=== PATIENT | female | born 1960 | race Caucasian/White ===

== ENCOUNTER → 2016-11-18 | Outpatient (REF) | payer OTHER, BC ==
[2016-11-18 12:23] LABS: ALBUMIN 3.9 GM/DL (3.2-5.2); ALBUMIN/GLOBULIN RATIO 1.22 (1.00-1.93); ALKALINE PHOSPHATASE 138 U/L (45-117); ALT/SGPT 57 U/L (12-78); ANION GAP 10 MEQ/L (8-16); AST/SGOT 43 U/L (15-37); BILIRUBIN,TOTAL 0.4 MG/DL (0.2-1.0); BLOOD UREA NITROGEN 13 MG/DL (7-18); CALCIUM LEVEL 9.1 MG/DL (8.5-10.1); CARBON DIOXIDE LEVEL 30 MEQ/L (21-32); CHLORIDE LEVEL 102 MEQ/L (98-107); CHOLESTEROL LEVEL 243 MG/DL (<200); CREATININE FOR GFR 0.87 MG/DL (0.55-1.02); GLOMERULAR FILTRATION RATE > 60.0 (>51); GLUCOSE, FASTING 97 MG/DL (70-105); POTASSIUM SERUM 4.1 MEQ/L (3.5-5.1); SODIUM LEVEL 142 MEQ/L (136-145); TOTAL PROTEIN 7.1 GM/DL (6.4-8.2); TRIGLYCERIDES LEVEL 94 MG/DL (<150)
== END ==
LOC: M LABDRAW1 11:29
PROVIDERS: ATTEND Nurse Practitioner Family
DX: E78.2 Mixed hyperlipidemia (principal)

== ENCOUNTER 2017-03-04 21:00 | Emergency (ER) | payer BC, OTHER ==
[~2017-03-04] VITALS: Ht 157.5 cm; Wt 72.6 kg
[2017-03-04] MEDS ORDERED: VITA500046 PO (21:19)
[2017-03-04] MEDS ORDERED: ALBU17IN2 INH (21:19)
[2017-03-04] MEDS ORDERED: PREV30CA11 PO (21:19)
[2017-03-04] MEDS ORDERED: DUO INH (21:19)
[2017-03-04] MEDS ORDERED: CHLO125TA PO (21:19)
[2017-03-04] MEDS ORDERED: SING10TA32 PO (21:19)
[2017-03-04] MEDS ORDERED: LISI-538 PO (21:19)
[2017-03-04] MEDS ORDERED: ZYRT10CA PO (21:19)
[2017-03-04] MEDS ORDERED: methylPREDNISolone INJ 125 MG/2 ML VIAL (J2930) IV ONE (23:15)
[2017-03-04] MEDS ORDERED: IPRATROPIUM 0.5MG/ALBUTEROL 2.5MG INH SOL UD 3ML (DUONEB)(J7620) NEB ONE (23:15)
[2017-03-04 23:39] LABS: BASO % 0.4 % (0.0-1.0); EOS # 0.2 K/mm3 (0.0-0.50); EOS % 3.2 % (0.0-3.0); LARGE UNSTAINED CELL # 0.1 K/mm3 (0.0-0.4); LARGE UNSTAINED CELL % 0.9 % (0.0-4.0); LYMPH # 1.5 K/mm3 (1.5-4.5); LYMPH % 20.6 % (24.0-44.0); MEAN CORPUSCULAR HEMOGLOBIN 28.6 pg (27.0-33.0); MEAN CORPUSCULAR VOLUME 84.1 fl (80.0-96.0); MONO # 0.5 K/mm3 (0.0-0.8); MONO % 6.7 % (0.0-5.0); NEUTROPHILS # 4.7 K/mm3 (1.8-7.7); NEUTROPHILS % 68.2 % (36.0-66.0); PLATELET COUNT, AUTOMATED 208 k/mm3 (150-450); RED CELL DISTRIBUTION WIDTH 13.5 % (11.5-14.5); WHITE BLOOD COUNT 6.9 K/mm3 (4.0-10.0)
[2017-03-05] MEDS ORDERED: PRED20TA PO (00:08)
[2017-03-05] MEDS ORDERED: ZITHTAB PO (00:08)
[2017-03-05] MEDS ORDERED: AZITHROMYCIN 250 MG TAB PO ONE (00:15)
[2017-03-05 00:34] LABS: ANION GAP 7 MEQ/L (8-16); BLOOD UREA NITROGEN 14 MG/DL (7-18); CALCIUM LEVEL 8.7 MG/DL (8.5-10.1); CARBON DIOXIDE LEVEL 30 MEQ/L (21-32); CHLORIDE LEVEL 105 MEQ/L (98-107); CREATININE FOR GFR 1.09 MG/DL (0.55-1.02); GLOMERULAR FILTRATION RATE 55.3 (>51); GLUCOSE, FASTING 115 MG/DL (70-105); POTASSIUM SERUM 3.3 MEQ/L (3.5-5.1); SODIUM LEVEL 142 MEQ/L (136-145)
[2017-03-05 00:45] VITALS: BP 115/66
== END 2017-03-05 00:48 | disposition home or self-care (01) ==
LOC: M ED 23:15
DX: J20.9 Acute bronchitis, unspecified (principal); J45.901 Unspecified asthma with (acute) exacerbation; I10 Essential (primary) hypertension; K21.9 Gastro-esophageal reflux disease without esophagitis; Z87.891 Personal history of nicotine dependence; Z79.51 Long term (current) use of inhaled steroids; Z79.899 Other long term (current) drug therapy; Z90.79 Acquired absence of other genital organ(s)
CPT/HCPCS: 36415; 71010; 80048; 82550; 82553; 83880; 85025; 85379; 93005; 93041; 94640; 94760; 96374; 99284; J2930

== ENCOUNTER → 2017-09-27 | Outpatient (REF) | payer BC ==
[2017-09-27 12:07] LABS: ALBUMIN/GLOBULIN RATIO 1.48 (1.00-1.93); ALKALINE PHOSPHATASE 134 U/L (45-117); ALT/SGPT 64 U/L (12-78); ANION GAP 7 MEQ/L (8-16); AST/SGOT 43 U/L (7-37); BILIRUBIN,TOTAL 0.3 MG/DL (0.2-1.0); BLOOD UREA NITROGEN 21 MG/DL (7-18); CALCIUM LEVEL 8.9 MG/DL (8.5-10.1); CARBON DIOXIDE LEVEL 30 MEQ/L (21-32); CHLORIDE LEVEL 105 MEQ/L (98-107); CREATININE FOR GFR 0.97 MG/DL (0.55-1.02); GLOMERULAR FILTRATION RATE > 60.0 (>51); GLUCOSE, FASTING 103 MG/DL (70-105); POTASSIUM SERUM 3.8 MEQ/L (3.5-5.1); SODIUM LEVEL 142 MEQ/L (136-145); TOTAL PROTEIN 6.7 GM/DL (6.4-8.2)
== END ==
LOC: M LABDRAW1 10:42
DX: I10 Essential (primary) hypertension (principal)
CPT/HCPCS: 80053

== ENCOUNTER → 2017-10-10 | Outpatient (REF) | payer BC ==
[2017-10-10 16:41] LABS: FREE T4 1.04 NG/DL (0.76-1.46)
== END ==
LOC: M SFHCPLAZ 09:53
DX: F32.89 Other specified depressive episodes (principal)
CPT/HCPCS: 84443

== ENCOUNTER → 2018-02-27 | Outpatient (REF) | payer BC ==
[2018-02-27 11:16] LABS: ALBUMIN 3.8 GM/DL (3.2-5.2); ALBUMIN/GLOBULIN RATIO 1.31 (1.00-1.93); ALKALINE PHOSPHATASE 109 U/L (45-117); ALT/SGPT 40 U/L (12-78); ANION GAP 7 MEQ/L (8-16); AST/SGOT 25 U/L (7-37); BILIRUBIN,TOTAL 0.3 MG/DL (0.2-1.0); BLOOD UREA NITROGEN 15 MG/DL (7-18); CALCIUM LEVEL 9.5 MG/DL (8.5-10.1); CARBON DIOXIDE LEVEL 30 MEQ/L (21-32); CHLORIDE LEVEL 104 MEQ/L (98-107); GLOMERULAR FILTRATION RATE > 60.0 (>51); GLUCOSE, FASTING 91 MG/DL (70-100); POTASSIUM SERUM 3.7 MEQ/L (3.5-5.1); SODIUM LEVEL 141 MEQ/L (136-145); TOTAL PROTEIN 6.7 GM/DL (6.4-8.2)
== END ==
LOC: M SFHCPLAZ 10:30
DX: I10 Essential (primary) hypertension (principal); E55.9 Vitamin D deficiency, unspecified
CPT/HCPCS: 80053

== ENCOUNTER → 2018-10-22 | Outpatient (REF) | payer BC ==
[~2018-10-22] MED LIST: ALBU17IN2 INH; CHLO125TA PO; DUO INH; LISI-538 PO; PRED20TA PO; PREV1CAP PO; SING10TA32 PO; VITA500046 PO; ZITHTAB PO; ZYRT10CA PO
[2018-10-22 13:06] LABS: ALBUMIN 3.7 GM/DL (3.2-5.2); BILIRUBIN,TOTAL 0.3 MG/DL (0.2-1.0); CALCIUM LEVEL 8.8 MG/DL (8.5-10.1); CHOLESTEROL RISK RATIO 4.393 (<5); CREATININE FOR GFR 1.02 MG/DL (0.55-1.30); GLOMERULAR FILTRATION RATE 59.5 (>51); POTASSIUM SERUM 3.9 MEQ/L (3.5-5.1); TOTAL 25(OH) VITAMIN D 95.7 NG/ML (30.0-100.0); TOTAL PROTEIN 6.6 GM/DL (6.4-8.2)
== END ==
LOC: M LABDRAW1 11:49
PROVIDERS: ATTEND Nurse Practitioner Family
DX: I10 Essential (primary) hypertension (principal); E78.2 Mixed hyperlipidemia; E55.9 Vitamin D deficiency, unspecified

== ENCOUNTER → 2019-04-18 | Outpatient (REF) | payer BC ==
[2019-04-18 13:35] LABS: ALBUMIN 3.8 GM/DL (3.2-5.2); BILIRUBIN,TOTAL 0.3 MG/DL (0.2-1.0); CALCIUM LEVEL 9.4 MG/DL (8.5-10.1); CHOLESTEROL RISK RATIO 4.714 (<5); CREATININE FOR GFR 1.12 MG/DL (0.55-1.30); GLOMERULAR FILTRATION RATE 53.2 (>51); POTASSIUM SERUM 3.6 MEQ/L (3.5-5.1)
== END ==
LOC: M LABDRAW1 07:29
PROVIDERS: ATTEND Nurse Practitioner Family
DX: E78.2 Mixed hyperlipidemia (principal)

== ENCOUNTER → 2019-04-26 | Outpatient (CLI) | payer BC ==
--- NOTE | 2019-04-26 16:11 | REP ---
Clinical: Pain. Technique: Neutral and frog lateral views of the right hip. Findings: No acute fracture dislocation. Skeletal structures, joint spaces, and surrounding soft tissues are essentially age-appropriate. Impression: Age-appropriate right hip radiographs. Electronically Signed by Kin Robledo MD 04/26/2019 04:03 P
== END ==
LOC: M LRY 15:47
PROVIDERS: ATTEND Physician Assistant
DX: M25.551 Pain in right hip (principal)

== ENCOUNTER → 2019-04-29 | Outpatient (CLI) | payer BC ==
--- NOTE | 2019-04-29 12:48 | REPMRS ---
Patient History The patient states she had a clinical breast exam in 03/2019. No known family history of cancer. No Hormone Replacement Therapy 3D TOMOSYNTHESIS WAS PERFORMED. [facility] for [facility]%. Digital Woman Screen Mammo: April 29, 2019 - Exam #: [id number] Bilateral CC and MLO view(s) were taken. Technologist: Laney Chandler, Technologist Prior study comparison: May 16, 2014, digital woman screen mammo performed at [facility]. May 25, 2010, bilateral bilat screen digital mammo performed at [facility]. FINDINGS: The breast tissue is heterogeneously dense. This may lower the sensitivity of mammography. There has been no change in the appearance of the mammogram from the prior studies. There is a moderate amount of residual fibroglandular tissue which is fairly symmetric. There is no interval development of dominant mass, areas of architectural distortion, or clustered microcalcification typical of malignancy. Assessment: BI-RADS/ACR category 1 mammogram. Negative Mammogram. Recommendation Routine screening mammogram in 1 year (for women over age 40). This mammogram was interpreted with the aid of an FDA-approved computer-aided dectection system. Electronically Signed By: Jose David Morrell MD 04/29/19 [id number]
== END ==
LOC: M WHC 10:12
PROVIDERS: ATTEND Nurse Practitioner Family
DX: Z12.31 Encounter for screening mammogram for malignant neoplasm of breast (principal)

== ENCOUNTER 2019-06-24 14:54 | Emergency (ER) | payer BC ==
[~2019-06-24] VITALS: Ht 157.5 cm; Wt 80.2 kg
[2019-06-24 14:54] VITALS: BP 131/79
[~2019-06-24 14:54] MED LIST changes: -ATIV1TAB7 PO; -AZEL1SPR3 NARES; -BEPR1.5D2 OP; -BREO1INH INH; -BUPR300T34 PO; -HYDR-3363 PO; -IPRA0.00 NEB; -REPLGEL VG; -SPIR1CAP INH; -VENTAER INH
--- NOTE | 2019-06-24 15:27 | REP ---
Portable chest x-ray: Single view. History: Chest pain. Comparison chest x-ray: June 24, 2019. Findings: EKG monitoring electrodes overlie the chest. The heart is not enlarged. The aorta is somewhat tortuous. Pleural angles are sharp. Pulmonary vasculature is not increased. Impression: No active disease. Electronically Signed by Juancarlos Allison MD 06/24/2019 03:18 P
[2019-06-24] MEDS ORDERED: VENTAER INH (15:36)
[2019-06-24] MEDS ORDERED: SPIR1CAP INH (15:36)
[2019-06-24] MEDS ORDERED: IPRA0.00 NEB (15:36)
[2019-06-24] MEDS ORDERED: REPLGEL VG (15:36)
[2019-06-24] MEDS ORDERED: ATIV1TAB7 PO (15:36)
[2019-06-24] MEDS ORDERED: BEPR1.5D2 OP (15:36)
[2019-06-24] MEDS ORDERED: AZEL1SPR3 NARES (15:36)
[2019-06-24] MEDS ORDERED: BUPR300T92 PO (15:36)
[2019-06-24] MEDS ORDERED: HYDR-3363 PO (15:36)
[2019-06-24] MEDS ORDERED: BREO1INH INH (15:36)
[2019-06-24 15:51] LABS: BASO % 0.5 % (0.0-1.0); EOS # 0.1 10^3/uL (0.0-0.5); EOS % 1.4 % (0.0-3.0); HEMOGLOBIN 13.3 g/dl (12.0-15.5); LYMPH # 1.5 10^3/uL (1.5-5.0); LYMPH % 25.7 % (24.0-44.0); MEAN CORPUSCULAR HEMOGLOBIN 28.1 pg (27.0-33.0); MEAN CORPUSCULAR HGB CONC 33.3 g/dl (32.0-36.5); MEAN CORPUSCULAR VOLUME 84.4 fl (80.0-96.0); MONO # 0.3 10^3/uL (0.0-0.8); MONO % 5.4 % (0.0-5.0); NEUTROPHILS # 3.9 10^3/uL (1.5-8.5); NEUTROPHILS % 66.5 % (36.0-66.0); PLATELET COUNT, AUTOMATED 253 10^3/uL (150-450); RED BLOOD COUNT 4.74 10^6/uL (4.00-5.40); WHITE BLOOD COUNT 5.9 10^3/uL (4.0-10.0)
[2019-06-24 16:35] LABS: BLOOD UREA NITROGEN 13 MG/DL (7-18); CALCIUM LEVEL 9.4 MG/DL (8.5-10.1); CARBON DIOXIDE LEVEL 25 MEQ/L (21-32); CHLORIDE LEVEL 107 MEQ/L (98-107); CK-MB VALUE MASS 2.7 NG/ML (<3.6); CPK CREATINE PHOSPHOKINASE 320 U/L (26-192); GLOMERULAR FILTRATION RATE 54.3 (>51); GLUCOSE, FASTING 113 MG/DL (70-100); MB/CK RELATIVE INDEX 0.84 (< OR =4); POTASSIUM SERUM 3.5 MEQ/L (3.5-5.1); SODIUM LEVEL 141 MEQ/L (136-145); TROPONIN I < 0.02 NG/ML (< 0.10)
[2019-06-24] MEDS ORDERED: IPRATROPIUM 0.5MG/ALBUTEROL 2.5MG INH SOL UD 3ML (DUONEB)(J7620) NEB ONE (17:00)
[2019-06-24] MEDS ORDERED: PRED20TA PO (17:25)
--- NOTE | 2019-06-24 21:01 | ECGEPIP ---
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
== END 2019-06-24 17:55 | disposition home or self-care (01) ==
LOC: M ED 14:54
DX: J45.901 Unspecified asthma with (acute) exacerbation (principal); I10 Essential (primary) hypertension; I44.7 Left bundle-branch block, unspecified; K21.9 Gastro-esophageal reflux disease without esophagitis; Z88.2 Allergy status to sulfonamides; Z79.899 Other long term (current) drug therapy

== ENCOUNTER → 2019-06-24 | Outpatient (CLI) | payer BC ==
[~2019-06-24] MED LIST changes: +ATIV1TAB7 PO; +AZEL1SPR3 NARES; +BEPR1.5D2 OP; +BREO1INH INH; +BUPR300T34 PO; +HYDR-3363 PO; +IPRA0.00 NEB; +REPLGEL VG; +SPIR1CAP INH; +VENTAER INH
--- NOTE | 2019-06-24 16:47 | REP ---
Chest x-ray: Two views: History: History of asthma. Shortness of breath. Comparison chest x-ray: March 04, 2017. Findings: The lungs are symmetrically aerated and free of infiltrate. Pleural angles are sharp. There is some linear fibrosis overlying the spine on the lateral radiograph which is not seen on the frontal view. This may be left-sided. Cardiomediastinal silhouette is unremarkable. No bony abnormality is seen. Impression: Linear fibrosis visible on the lateral film suspected in the left upper lobe. Otherwise no active disease. Electronically Signed by Juancarlos Allison MD 06/24/2019 04:52 P
== END ==
LOC: M LRY 13:34
PROVIDERS: ATTEND Nurse Practitioner Family
DX: R06.02 Shortness of breath (principal)

== ENCOUNTER 2019-06-25 15:14 | Emergency (ER) | payer BC ==
[~2019-06-25] VITALS: Ht 157.5 cm; Wt 79.5 kg
[~2019-06-25 15:14] MED LIST changes: +ATIV1TAB7 PO; +AZEL1SPR3 NARES; +BEPR1.5D2 OP; +BREO1INH INH; +BUPR300T34 PO; +HYDR-3363 PO; +IPRA0.00 NEB; +REPLGEL VG; +SPIR1CAP INH; +VENTAER INH
[2019-06-25 16:44] LABS: CK-MB VALUE MASS 2.4 NG/ML (<3.6); CPK CREATINE PHOSPHOKINASE 177 U/L (26-192); MB/CK RELATIVE INDEX 1.36 (< OR =4); TROPONIN I < 0.02 NG/ML (< 0.10)
[2019-06-25 17:15] VITALS: BP 112/76
--- NOTE | 2019-06-26 07:36 | ECGEPIP ---
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
== END 2019-06-25 17:40 | disposition home or self-care (01) ==
LOC: M ED 15:14
DX: I44.7 Left bundle-branch block, unspecified (principal); Z88.2 Allergy status to sulfonamides; Z79.899 Other long term (current) drug therapy

== ENCOUNTER → 2019-07-25 | Outpatient (REF) | payer BC ==
[2019-07-25 12:11] LABS: ALBUMIN 3.5 GM/DL (3.2-5.2); BILIRUBIN,TOTAL 0.3 MG/DL (0.2-1.0); CALCIUM LEVEL 8.4 MG/DL (8.5-10.1); CHOLESTEROL RISK RATIO 4.625 (<5); CREATININE FOR GFR 1.06 MG/DL (0.55-1.30); GLOMERULAR FILTRATION RATE 56.7 (>51); TOTAL PROTEIN 6.2 GM/DL (6.4-8.2)
[2019-07-25 12:15] LABS: TOTAL 25(OH) VITAMIN D 68.4 NG/ML (30.0-100.0)
== END ==
LOC: M LABDRAW1 11:12
PROVIDERS: ATTEND Nurse Practitioner Family
DX: E55.9 Vitamin D deficiency, unspecified (principal); I10 Essential (primary) hypertension

== ENCOUNTER → 2019-10-25 | Outpatient (REF) | payer BC ==
[~2019-10-25] MED LIST changes: -BUPR300T34 PO; +BUPR300T92 PO
[2019-10-25 14:02] LABS: ALBUMIN 4.2 GM/DL (3.2-5.2); BILIRUBIN,TOTAL 0.4 MG/DL (0.2-1.0); CALCIUM LEVEL 9.7 MG/DL (8.5-10.1); CHOLESTEROL RISK RATIO 4.746 (<5); CREATININE FOR GFR 1.17 MG/DL (0.55-1.30); GLOMERULAR FILTRATION RATE 50.6 (>51); TOTAL PROTEIN 7.5 GM/DL (6.4-8.2)
[2019-10-25 14:08] LABS: TOTAL 25(OH) VITAMIN D 77.4 NG/ML (30.0-100.0)
[2019-10-25 14:28] LABS: CREATININE, URINE 41.4 MG/DL; MALB URINE SIEMENS < 5.0 MG/L
== END ==
LOC: M LABDRAW1 13:19
PROVIDERS: ATTEND Nurse Practitioner Family
DX: E55.9 Vitamin D deficiency, unspecified (principal); E78.2 Mixed hyperlipidemia; I10 Essential (primary) hypertension

== ENCOUNTER 2019-10-30 11:34 | Emergency (ER) | payer BC ==
[~2019-10-30] VITALS: Ht 157.5 cm; Wt 81.1 kg
[2019-10-30] MEDS ORDERED: ROSU20TA5 PO (11:44)
[2019-10-30] MEDS ORDERED: FLUORESCEIN OPHTH 1 MG STRIP OU ONE (13:30)
[2019-10-30] MEDS ORDERED: TETRACAINE 0.5% OPHTH SOLN 4ML OU ONE (13:30)
[2019-10-30 16:06] VITALS: BP 142/91
== END 2019-10-30 16:09 | disposition short-term general hospital (02) ==
LOC: M ED 11:34
DX: H33.001 Unspecified retinal detachment with retinal break, right eye (principal); I10 Essential (primary) hypertension; J45.909 Unspecified asthma, uncomplicated; Z87.891 Personal history of nicotine dependence; Z79.899 Other long term (current) drug therapy; Z88.2 Allergy status to sulfonamides

== ENCOUNTER → 2020-02-04 | Outpatient (CLI) | payer BC ==
[~2020-02-04] MED LIST changes: +ROSU20TA5 PO
--- NOTE | 2020-02-04 10:36 | REP ---
CHEST, TWO VIEWS: COMPARISON: 06/24/2019 Two views of the chest are performed. There is no acute infiltrate. There is linear scarring superiorly on the lateral view. The heart is normal in size. The mediastinal silhouette is unchanged. There are mild degenerative changes of the spine. IMPRESSION: No acute infiltrate. Electronically Signed by Jose David Morrell MD 02/04/2020 10:44 A
== END ==
LOC: M LRY 09:57
PROVIDERS: ATTEND Physician Assistant
DX: J45.901 Unspecified asthma with (acute) exacerbation (principal)

== ENCOUNTER → 2020-04-07 | Outpatient (CLI) | payer BC ==
[2020-04-07 11:11] LABS: BASO % 0.5 % (0.0-1.0); EOS # 0.1 10^3/uL (0.0-0.5); EOS % 1.7 % (0.0-3.0); HEMATOCRIT 39.5 % (36.0-47.0); HEMOGLOBIN 12.6 g/dl (12.0-15.5); LYMPH # 1.6 10^3/uL (1.5-5.0); LYMPH % 26.4 % (24.0-44.0); MEAN CORPUSCULAR HEMOGLOBIN 27.6 pg (27.0-33.0); MEAN CORPUSCULAR HGB CONC 31.9 g/dl (32.0-36.5); MEAN CORPUSCULAR VOLUME 86.4 fl (80.0-96.0); MONO # 0.6 10^3/uL (0.0-0.8); MONO % 9.4 % (0.0-5.0); NEUTROPHILS # 3.7 10^3/uL (1.5-8.5); NEUTROPHILS % 61.5 % (36.0-66.0); PLATELET COUNT, AUTOMATED 233 10^3/uL (150-450); RED BLOOD COUNT 4.57 10^6/uL (4.00-5.40)
[2020-04-10 04:07] LABS: D001-IgE D pteronyssinus 1.82 kU/L (Class III); E001-IgE Cat Epith/Dander 0.13 kU/L (Class 0/I); E005-IgE Dog Dander 0.33 kU/L (Class I); G002-IgE Bermuda Grass < 0.10 kU/L (Class 0); G008-IgE Kentucky Bluegrass < 0.10 kU/L (Class 0); M001-IgE Penicillium chrysogen < 0.10 kU/L (Class 0); M002 IgE Cladosporium herbaru < 0.10 kU/L (Class 0); M003 IgE Aspergillus fumigatu < 0.10 kU/L (Class 0); M006-IgE Alternaria alternata < 0.10 kU/L (Class 0); T001-IgE Maple/Box Elder < 0.10 kU/L (Class 0); T003-IgE Common Silver Birch < 0.10 kU/L (Class 0); T006-IgE Cedar, Mountain < 0.10 kU/L (Class 0); T007-IgE Oak, White < 0.10 kU/L (Class 0); T008-IgE Elm, American < 0.10 kU/L (Class 0); T015-IgE Ash, White < 0.10 kU/L (Class 0); T041-IgE Hickory, White < 0.10 kU/L (Class 0); T070-IgE White Mulberry < 0.10 kU/L (Class 0); W001-IgE Ragweed, Short < 0.10 kU/L (Class 0); W009-IgE Plantain, English < 0.10 kU/L (Class 0); W014-IgE Pigweed, Rough < 0.10 kU/L (Class 0); W018-IgE Sheep Sorrel < 0.10 kU/L (Class 0)
== END ==
LOC: M PLALAB 08:34
PROVIDERS: ATTEND Nurse Practitioner Family
DX: J45.40 Moderate persistent asthma, uncomplicated (principal)

== ENCOUNTER → 2020-04-07 | Outpatient (REF) | payer BC ==
[2020-04-07 11:40] LABS: BILIRUBIN,TOTAL 0.4 MG/DL (0.2-1.0); CALCIUM LEVEL 9.2 MG/DL (8.5-10.1); CHOLESTEROL RISK RATIO 2.878 (<5); CREATININE FOR GFR 1.1 MG/DL (0.55-1.30); GLOMERULAR FILTRATION RATE 54.1 (>51); POTASSIUM SERUM 4.3 MEQ/L (3.5-5.1); TOTAL PROTEIN 7.2 GM/DL (6.4-8.2)
== END ==
LOC: M PLALAB 08:37
PROVIDERS: ATTEND Nurse Practitioner Family
DX: E78.2 Mixed hyperlipidemia (principal)

== ENCOUNTER → 2020-10-04 | Outpatient (CLI) | payer SELFPAY | LOC: M LABSMTC 11:24 | PROVIDERS: ATTEND Pediatrics | DX: Z20.822 Contact with and (suspected) exposure to COVID-19 (principal) ==

== ENCOUNTER → 2020-11-04 | Outpatient (REF) | payer BC ==
[~2020-11-04] MED LIST changes: -LISI-538 PO; +LISI20TA33 PO
[2020-11-04 14:24] LABS: BILIRUBIN,TOTAL 0.4 MG/DL (0.2-1.0); CALCIUM LEVEL 9.8 MG/DL (8.5-10.1); CREATININE FOR GFR 1.11 MG/DL (0.55-1.30); CREATININE, URINE 23.2 MG/DL; GLOMERULAR FILTRATION RATE 53.6 (>51); MALB URINE SIEMENS < 5.0 MG/L; MAU/CREAT RATIO 21.5 MCG/MG (0.0-30.0); TOTAL PROTEIN 7.2 GM/DL (6.4-8.2)
[2020-11-04 14:28] LABS: TOTAL 25(OH) VITAMIN D 65.1 NG/ML (30.0-100.0)
== END ==
LOC: M PLALAB 10:15
PROVIDERS: ATTEND Nurse Practitioner Family
DX: E78.2 Mixed hyperlipidemia (principal); I10 Essential (primary) hypertension; E55.9 Vitamin D deficiency, unspecified

== ENCOUNTER → 2021-04-27 | Outpatient (CLI) | payer BC ==
[~2021-04-27] MED LIST changes: +BUPR-365 PO; +CIPR250T3 PO; +METH-1164 PO; +METR-265 PO; +NAPR-837 PO; +PANT40TA29 PO; +PROB250C PO; +SUCR1TA PO; +VITA500030 PO
[2021-04-27 12:42] LABS: ALT/SGPT 27 U/L (12-78); BILIRUBIN,TOTAL 0.4 MG/DL (0.2-1.0); BLOOD UREA NITROGEN 11 MG/DL (7-18); CALCIUM LEVEL 9.4 MG/DL (8.8-10.2); CARBON DIOXIDE LEVEL 32 MEQ/L (21-32); CHLORIDE LEVEL 104 MEQ/L (98-107); CHOLESTEROL LEVEL 146 MG/DL (<200); CHOLESTEROL RISK RATIO 2.179 (<5); GLOMERULAR FILTRATION RATE > 60.0 (>45); GLUCOSE, FASTING 90 MG/DL (70-100); HDL CHOLESTEROL 67 MG/DL (>40); LDL CHOLESTEROL 64 MG/DL (<100); MAGNESIUM LEVEL 2.2 MG/DL (1.8-2.4); NON-HDL-C 79 MG/DL; POTASSIUM SERUM 4.4 MEQ/L (3.5-5.1); SODIUM LEVEL 143 MEQ/L (136-145); TOTAL PROTEIN 7.2 GM/DL (6.4-8.2); TRIGLYCERIDES LEVEL 73 MG/DL (<150)
[2021-04-27 12:49] LABS: VITAMIN B12 LEVEL 292 PG/ML
[2021-04-27 12:50] LABS: FOLATE 8.6 NG/ML
== END ==
LOC: M PLALAB 08:58
PROVIDERS: ATTEND Nurse Practitioner Family
DX: E78.2 Mixed hyperlipidemia (principal); K21.9 Gastro-esophageal reflux disease without esophagitis

== ENCOUNTER 2021-08-27 14:22 | Emergency (ER) | payer OTHER, BC ==
[~2021-08-27 14:22] MED LIST changes: -BUPR-365 PO; -CIPR250T3 PO; -METH-1164 PO; -METR-265 PO; -NAPR-837 PO; -PANT40TA29 PO; -PROB250C PO; -SUCR1TA PO; -VITA500030 PO
[2021-08-27] MEDS ORDERED: METH-1164 PO (16:25)
[2021-08-27] MEDS ORDERED: NAPR-837 PO (16:25)
--- OUTSIDE RECORDS SUMMARY | 2021-08-27 16:58 | CCD ---
Author Author [facility] Organization [facility] Address Unknown Phone Unavailable Care Team Providers Care Assembly Line Supervisor Name Role Phone Shyanne Peguero Unavailable PROBLEMS Type Condition ICD9-CM Code XRF62-BK Code Onset Dates Condition S tatus W/U Status Risk SNOMED Code Notes Problem Allergic rhinitis J30.9 Active confirmed 61 309543 Problem Mixed hyperlipidemia E78.2 Active confirmed 468253350 Problem Unspecified asthma with (acute) exacerbation J45.9 01 Active confirmed 755139591 Problem Vitamin D deficiency E55.9 Active confirmed 12920375 Problem Moderate persistent asthma without complication J4 5.40 Active confirmed 815276793 Problem Intermittent asthma, uncomplicated J45.20 Activ e confirmed 854133261 Problem Obesity (BMI 30-39.9) E66.9 Active confirmed 025425244 Problem Symptomatic menopausal or female climacteric states N95.1 Active confirmed 26307009 Problem Asthma exacerbation J45.901 Active confirmed 750742695 Problem Acquired absence of both cervix and uterus Z90.710 Active confirmed 856927649 Problem Anxiety F41.9 Active confirmed 45317876 Problem Single current episode of ma tomi depressive disorder, unspecified depression episode severity F32.9 Active confirmed 26 7320053 Problem Generalized anxiety disorder F41.1 Active confirme d 95410947 Problem Major depressive disorder, recurrent, moderate F33 .1 Active confirmed 032467355 Problem Vertigo R42 Active confirmed 399322596 Problem Gastroesophageal reflux disease without esophagitis K21.9 Active confirmed 695912479 Problem Environmental allergies Z91.09 Active confirmed 594036485 Problem Other depression F32.89 Active confirmed 354 74189 Problem Essential hypertension I10 Active confirmed 17490462 Problem Mild intermittent asthma with acute exacerbation J 45.21 Active confirmed 916221361 Problem Adjustment disorder with mixed anxiety and depressed mood F43.23 Active confirmed 64289416 Problem Major depressive disorder, single episode, moderate F32.1 Active confirmed 89556483 Problem Exacerbation of asthma, unsp ecified asthma severity, unspecified whether persistent J45.901 Active confirmed 558928860 Problem Left bundle branch block I44.7 Active confirmed 81329150 ALLERGIES Allergen (clinical drug ingredient) Drug/Non Drug Allergy do cumented on EMR Reaction Allergy Type Onset Date Status pravastatin Pravastatin Sodium([facility] Code:[address]-97) short ness of breath Drug Allergy Active sulfamethoxazole / trimethoprim Bactrim(ND Code:[address]-28) hives Drug Allergy Active atorvastatin Atorvastatin Calcium(ND Code:[address]-67) ella rtness of breath Drug Allergy Active ENCOUNTERS from 1960 to 2021-07-14 Encounter Location Date Provider Diagnosis [address] [phone] [place] [address] Jun, Shyanne Peguero Intermittent asthma, uncompl icated J45.20 IMMUNIZATIONS Vaccine Route Administration Date Status COVID-19 dose #1 given elsewhere Unspecified Unknown Apr 29, 2021 Administered Influenza 18 yrs & older Flublok IM Intramuscular Nov 11, 2020 Administered Influenza 18 yrs & older Flublok IM Intramuscular Jul 26, 2019 Administered Influenza 6mo & up Fluzone Unknown Nov 22, 2016 Refus ed Influenza 6mo & up Fluzone IM Intramuscular Aug 28, 2015 Admi nistered Influenza 6mo & up Fluzone IM Intramuscular Aug 27, 2014 Admi nistered Influenza 6mo & up Fluzone IM Intramuscular Jul 24, 2013 Admi nistered SOCIAL HISTORY Tobacco Use: Social History Observation Description Date Details (start date - stop date) Never Smoker Sex Assigned At : Social History Observation Description Sex Assigned At Female Education: Question Answer Notes Level of Education: Not Finished College Audit Question Answer Notes Total Score: 0 Interpretation: Alcohol Education Language: Question Answer Notes Languages spoken: German 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 Yes Have you ever had an STD? No Prevention Strategies discussed: Other with Men only Use protection? No Drug and Alcohol Question Answer Notes Total Score: 0 Interpretation: No problems reported Alcohol Screening: Question Answer Notes Did you have a drink containing alcohol in the past year? Ye s Points 4 Interpretation Positive How often did you have six or more drinks on one occas ion in the past year? Never (0 points) How many drinks did you have on a typica l day when you were drinking in the past year? 1 or 2 (0 points) How often did you have a drink containing alcohol in t he past year? Four or more times a week (4 points) BMI Care Goal Follow-Up Question Answer Notes Above Normal BMI Follow-Up Giving encouragement to exercise Tobacco Use: Question Answer Notes Are you a: never smoker REASON FOR REFERRAL No Information VITAL SIGNS No information MEDICATIONS Medication SIG (Take, Route, Frequency, Duration) Notes Start Da te End Date Status Rosuvastatin Calcium 20 MG 1 tablet Orally Once a day for 90 days Active Ventolin HFA 108 (90 Base) MCG/ACT 2 puffs as needed I nhalation every 4 hrs for 90 day(s) Active Lisinopril 20MG 1 tablet Orally Once a day for 90 Active Chlorthalidone 25 mg 1/2 tablet in the morning Orally Once a day for 90 days Active Bepreve 1.5 % 1 drop into affected eye per Dr Harden Ophthalmic Twice a day as needed for 30 Days Active Pulse Oximeter For Finger - as directed DX: + COVID, A sthma Daily and as needed for shortness of breath for 90 day(s) Sep, Active Breo Ellipta 100-25 MCG/INH 1 puff Inhalation Once a day for 90 days Active Vitamin D 1000 UNIT 1 tablet with meal Orally Once a day Active buPROPion HCl ER (XL) 150 MG 1 tablet in the morning O rally Once a day for 90 day(s) Apr, Active Azelastine HCl 0.1 % 2 sprays in each nostril Nasally Once a day for 90 day(s) Active Physical Therapy evaluate and treat as directed 1-3X/week DX: R4 2 for 30 days Oct, Not-Taking Loratadine 10 MG 1 tablet Orally Once a day for 30 day(s) prn Active Meclizine HCl 25 mg 1 tablet as needed Orally tw ice daily as needed for 90 day(s) Jul, Active LORazepam 1 MG 1 tablet Orally daily as nee ded 1 hour prior to air travel for 8 days Jun, Active Ipratropium-Albuterol 0.5-2.5 (3) MG/3ML 3 ml Inhalation Four times a day Active Replens OTC as directed Vaginal as directed as needed Apr, Active Lansoprazole 30 MG TAKE 1 CAPSULE DAILY for 90 Active PROCEDURES No Information RESULTS No Results REASON FOR VISIT New Refill Request MEDICAL (GENERAL) HISTORY Type Description Date Medical History mild intermittent/ moderate persistent asthma - FEV1 2.33 (08/07) Medical History hyperlipidemia, mixed Medical History situational anxiety Medical History allergic rhinitis - environmental Medical History essential Hypertension (08/07) Medical History postmenopause Medical History Vitamin D deficiency Medical History Gastroesophageal reflux disease without esophagitis Surgical History D & C, uterine ablation ([facility] 2006) Surgical History L breast bx benign Surgical History tubal ligation Surgical History hysterectomy - lap assisted vaginal - Bryan wkins 08/04 Surgical History EGD - normal/ colonoscopy - internal hemorrhoids, Reindl (repeat 10yrs) 07-26-13 Goals Section No Information Health Concerns No Information MEDICAL EQUIPMENT No Information MENTAL STATUS No Information FUNCTIONAL STATUS No Information ASSESSMENTS Encounter Date Diagnosis Assessment Notes Treatment Notes Treatm ent Clinical Notes Jun, Intermittent asthma, uncomplicated (ICD-10 - J45 .20) PLAN OF TREATMENT Medication Medication Name Sig Start Date Stop Date Lisinopril 20MG 1 tablet Orally Once a day for 90 Breo Ellipta 100-25 MCG/INH 1 puff Inhalation Once a day for 90 days buPROPion HCl ER (XL) 150 MG 1 tablet in the morning O rally Once a day for 90 day(s) Apr, Azelastine HCl 0.1 % 2 sprays in each nostril Nasally Once a day for 90 day(s) Chlorthalidone 25 mg 1/2 tablet in the morning Orally Once a day for 90 days Rosuvastatin Calcium 20 MG 1 tablet Orally Once a day for 90 day s Loratadine 10 MG 1 tablet Orally Once a day for 30 day(s) LORazepam 1 MG 1 tablet Orally daily as nee ded 1 hour prior to air travel for 8 days Jun, Ventolin HFA 108 (90 Base) MCG/ACT 2 puffs as needed I nhalation every 4 hrs for 90 day(s) Lansoprazole 30 MG TAKE 1 CAPSULE DAILY for 90 Next Appt Details Provider Name:Ashley Cochran, 2021-11-26 01:00:00 PM, [address] [facility], , [place], [address], Insurance Providers Payer Name Payer Address Payer Phone Insured Name Patient Relati onship to Insured Coverage Start Date Coverage End Date BCBS OF [facility] [phone] [place] [id number] ARTURO RUIZ self
--- OUTSIDE RECORDS SUMMARY | 2021-08-27 16:59 | CCD | Continuity of Care Document ---
Author Nicole Carrero N.P. Organization Unknown Address [address] [place] [address] Phone [phone] Care Team Providers Care Vault Manager Name Role Phone Shyanne Peguero AUTM [phone] AUTM Unavailable Problems Description No Active Problems Social History Type Date Description Comments Sex Unknown ETOH Use 1 A Day Tobacco Use Start: 09/25/79 End: 09/25/89 Patient is a forme r smoker Smoking Status Reviewed: 06/30/21 Patient is a former smoker Allergies and adverse reactions Active Allergies Criticality Reaction | Severity Comments Date Sulfa Unable to assess criticality rash, fever 01/30/2012 Bactrim Unable to assess criticality 03/09/2020 Medications Active Medications SIG Qnty Indications Ordering Provide r Date Tums 500mg Chewtabs 1 po qid Unknown Albuterol Sulfate (2 .5mg/3ML) 0.083% Nebulizer 1 neb q4h /prn 1month Unknown Claritin 10mg Tablets take one tab po daily for allergy symptoms 90tabs Unknown Ventolin HFA 108(90Base) mcg/Act A erosol 2 puffs qid/prn 18units Unknown Azelastine HCL (Nasal) 0.1% Soluti on 1 spray both nostrils twice a day 60ml Shyanne Peguero NP Breo Ellipta 100-25mcg/Inh Aerosol 1 puff once a day 30units Shyanne Peguero NP Chlorthalidone 25mg Tablets Take 1 2 (One Half) Tablet By Mouth Once Daily In The Morning Unknown Lisinopril 20mg Tablets 1 tab by mouth every day 30tabs Shyanne Peguero NP Rosuvastatin Calcium 20mg Tablets Take 1 Tablet By Mouth Once Daily Unknown Lansoprazole 30mg Capsules DR 1 cap by mouth every day 30caps Shyanne Peguero NP Bupropion Hydrochloride ER (XL) 300mg Tablets ER 24HR 1 tab by mouth every day 30tabs Shyanne Peguero NP 0 Lorazepam 1mg Tablets as need ed 60tabs Shyanne Peguero NP Vitamin D 1000Unit Tablets 1 tab by mouth every day Unknown Bepreve 1.5% Solution 1 drop both eyes every day Unknown Immunizations Description No Information Available Vital Signs Date Vital Result Comment 06/30/2021 4:14pm BP Systolic 126 mmHg BP Diastolic 60 mmHg Heart Rate 106 /min O2 % BldC Oximetry 98 % Height 63 inches 5'3" Weight 172.00 lb BMI (Body Mass Index) 30.5 kg/m2 [place] Body Weight 115 lb Weight 78.019 kg BSA (Body Surface Area) 1.81 m2 11/27/2020 9:11am BP Systolic 118 mmHg BP Diastolic 78 mmHg Heart Rate 80 /min O2 % BldC Oximetry 98 % Room Air Height 63 inches 5'3" Weight 179.00 lb BMI (Body Mass Index) 31.7 kg/m2 [place] Body Weight 115 lb Weight 81.194 kg BSA (Body Surface Area) 1.84 m2 Results Test Acquired Date Facility Test Result H/L Range Note FVL/Dandre 06/30/2021 [facility] SEE IMAGE FVC-Pred 3.18 L FVC-Pre 3.04 L FVC-%Pred-Pre 95 L FVC-LLN 2.51 L Fev1-Pred 2.46 L Fev1-Pre 2.32 L Fev1-%Pred-Pre 94 L Fev1-LLN 1.89 L Fev6-Pred 3.07 L Fev6-Pre 3.03 L Fev6-%Pred-Pre 98 L Fev6-LLN 2.41 L Wii9tld-Fzsx 78 % Iug9gcw-Mij 76 % Rwk0cah-%Pred-Pre 97 % Ope3ihz-MMQ 68 % Pdw9sxm-Njkp 96 % Fln3kuz-Dxi 99 % Kvc8lxw-%Pred-Pre 103 % FEFMax-Pred 6.14 L/E/sec FEFMax-Pre 6.96 L/E/sec FEFMax-%Pred-Pre 113 L/E/sec FEFMax-LLN 4.48 L/E/sec Rvg0450-Xwoo 2.29 L/E/sec Ecb0041-Frl 1.85 L/E/sec Jlj0131-%Pred-Pre 80 L/E/sec Ing0646-SJS 1.09 L/E/sec ExpTime-Pre 7.08 sec Xmp8swu3-Gspo 81 % Igx3moj3-Ali 77 % Lmy1rsu3-%Pred-Pre 94 % Ypi5glw9-KUG 72 % Procedures Description No Information Available Medical Devices Description No Information Available Encounters Description No Information Available Assessments Date Code Description Provider 06/30/2021 J45.40 Moderate persistent asthma, unco mplicated Yvonne Lafleur, N.P. Plan of Treatment 06/30/2021 - Yvonne Lafleur, N.P.* J45.40 Moderate persistent asthma, uncomplicated * * New Labs:* FVL/Dandre, Ordered: 06/30/21 * Follow up:* 1. Follow up in 6 months time with fvl/spirometry. Functional Status Functional Condition Comment Date Status Independent with all ADL's Activ e Mental Status Mental Condition Comment Date Status Cognitive ability not impaired A ctive Referrals Description No Information Available
--- OUTSIDE RECORDS SUMMARY | 2021-08-27 16:59 | CCD ---
Continuity of Care Document (CCD) Created on: 06/30/2021 Nicole Casper External Reference #: [id number] : [id number] Sex: Female Author Nicole Carrero N.P. Organization Unknown Address [address] [place] [address] Phone [phone] Care Team Providers Care Physician Specialist Name Role Phone Shyanne Peguero AUTM [phone] AUTM Unavailable Problems Description No Active Problems [...] lb BMI (Body Mass Index) 30.5 kg/m2 [place] Body Weight 115 lb Weight 78.019 kg BSA (Body Surface Area) 1.81 m2 11/27/2020 9:11am BP Systolic 118 mmHg BP Diastolic 78 mmHg Heart Rate 80 /min O2 % BldC Oximetry 98 % Room Air Height 63 inches 5'3" Weight 179.00 lb BMI (Body Mass Index) 31.7 kg/m2 [place] Body Weight 115 lb Weight 81.194 kg [...] L Fev6-%Pred-Pre 98 L Fev6-LLN 2.41 L Cer8xfa-Xotf 78 % Skq9hit-Aft 76 % Olw6rug-%Pred-Pre 97 % Mgo6bxp-ZRJ 68 % Swb5pmj-Ubfc 96 % Zlm0pwv-Edz 99 % Qdp5eyf-%Pred-Pre 103 % FEFMax-Pred 6.14 L/E/sec FEFMax-Pre 6.96 L/E/sec FEFMax-%Pred-Pre 113 L/E/sec FEFMax-LLN 4.48 L/E/sec Uyo8361-Onio 2.29 L/E/sec Rdb0194-Hiz 1.85 L/E/sec Vfz1609-%Pred-Pre 80 L/E/sec Ygi9907-AGC 1.09 L/E/sec ExpTime-Pre 7.08 sec Qjt2qao5-Lmfx 81 % Uou6bwz8-Cxr 77 % Yat5ppe0-%Pred-Pre 94 % Oyf4pkm7-LDI 72 % Procedures Description No Information Available [...]
--- OUTSIDE RECORDS SUMMARY | 2021-08-27 16:59 | CCD | Continuity of Care Document ---
Author Nicole Carrero N.P. Organization Unknown Address [address] [place] [address] Phone [phone] Care Team Providers Care Health Information Systems Technician Name Role Phone Shyanne Peguero AUTM [phone] AUTM Unavailable Problems Description No Active Problems [...] lb BMI (Body Mass Index) 30.5 kg/m2 [place] Body Weight 115 lb Weight 78.019 kg BSA (Body Surface Area) 1.81 m2 11/27/2020 9:11am BP Systolic 118 mmHg BP Diastolic 78 mmHg Heart Rate 80 /min O2 % BldC Oximetry 98 % Room Air Height 63 inches 5'3" Weight 179.00 lb BMI (Body Mass Index) 31.7 kg/m2 [place] Body Weight 115 lb Weight 81.194 kg [...] L Fev6-%Pred-Pre 98 L Fev6-LLN 2.41 L Jlm2uoa-Jdni 78 % Ngd5lmy-Uby 76 % Gom6vxc-%Pred-Pre 97 % Ktv5roe-FLT 68 % Wco3fbe-Cvwx 96 % Gyd2ejb-Qid 99 % Exz3zyb-%Pred-Pre 103 % FEFMax-Pred 6.14 L/E/sec FEFMax-Pre 6.96 L/E/sec FEFMax-%Pred-Pre 113 L/E/sec FEFMax-LLN 4.48 L/E/sec Uae2139-Psco 2.29 L/E/sec Hvb2716-Bfw 1.85 L/E/sec Rhi3262-%Pred-Pre 80 L/E/sec Qfd0612-JHX 1.09 L/E/sec ExpTime-Pre 7.08 sec Xrd3evc7-Eyun 81 % Zbw7cic8-Bdq 77 % Fnu1ozv8-%Pred-Pre 94 % Fcy6qee4-JFR 72 % Procedures Description No Information Available [...]
--- OUTSIDE RECORDS SUMMARY | 2021-08-27 16:59 | CCD ---
Author Author [facility] Organization [facility] Address Unknown Phone Unavailable Care Team Providers Care Correction Officer [facility] Name Role Phone KATERIN LOVESEA POSTDOCTORAL RESEARCH FELLOW-C Unavailable Unavailable KATELISAE SYBIL POSTDOCTORAL RESEARCH FELLOW-C Unavailable Unavailable KATELISAE SYBIL POSTDOCTORAL RESEARCH FELLOW-C Unavailable Unavailable KATELISAE SYBIL POSTDOCTORAL RESEARCH FELLOW-C Unavailable Unavailable KATELISA NicholsE SYBIL POSTDOCTORAL RESEARCH FELLOW-C Unavailable Unavailable KATE, KATERIN SYBIL POSTDOCTORAL RESEARCH FELLOW-C Unavailable Unavailable KATE, KATERIN SYBIL POSTDOCTORAL RESEARCH FELLOW-C Unavailable Unavailable KATE, KATERIN SYBIL POSTDOCTORAL RESEARCH FELLOW-C Unavailable Unavailable KATE, KATERIN SYBIL POSTDOCTORAL RESEARCH FELLOW-C Unavailable Unavailable KATE, KATERIN SYBIL POSTDOCTORAL RESEARCH FELLOW-C Unavailable Unavailable KATE, KATERIN SYBLI POSTDOCTORAL RESEARCH FELLOW-C Unavailable Unavailable KATE, KATERIN SYBIL POSTDOCTORAL RESEARCH FELLOW-C Unavailable Unavailable KATE, KATERIN SYBLI POSTDOCTORAL RESEARCH FELLOW-C Unavailable Unavailable KATE, KATERIN SYBIL POSTDOCTORAL RESEARCH FELLOW-C Unavailable Unavailable KATE, KATERIN SYBIL POSTDOCTORAL RESEARCH FELLOW-C Unavailable Unavailable KATE, KATERIN SYBIL POSTDOCTORAL RESEARCH FELLOW-C Unavailable Unavailable KATE, KATERIN SYBIL POSTDOCTORAL RESEARCH FELLOW-C Unavailable Unavailable Re-disclosure Warning The records that you are about to access may contain information from federally-assisted alcohol or drug abuse programs. If such information is present, then the following federally mandated warning applies: This information has been disclosed to you from records protected by federal confidentiality rules (42 CFR part 2). The federal rules prohibit you from making any further disclosure of this information unless further disclosure is expressly permitted by the written consent of the person to whom it pertains or as otherwise permitted by 42 CFR part 2. A general authorization for the release of medical or other information is NOT sufficient for this purpose. The Federal rules restrict any use of the information to criminally investigate or prosecute any alcohol or drug abuse patient.The records that you are about to access may contain highly sensitive health information, the redisclosure of which is protected by Article 27-F of the [facility] Public Health law. If you continue you may have access to information: Regarding HIV / AIDS; Provided by facilities licensed or operated by the [facility] Office of Mental Health; or Provided by the [facility] Office for People With Developmental Disabilities. If such information is present, then the following [facility] mandated warning applies: This information has been disclosed to you from confidential records which are protected by state law. State law prohibits you from making any further disclosure of this information without the specific written consent of the person to whom it pertains, or as otherwise permitted by law. Any unauthorized further disclosure in violation of state law may result in a fine or custodial sentence or both. A general authorization for the release of medical or other information is NOT sufficient authorization for further disc losure. Family History Family Member Name Family Member Gender Family Member Status Date o f Status Description Data Source(s) Unknown Unknown Problem MEDENT ([facility], [facility]) mother, brother Encounters Encounter Providers Location Date Indications Data Source(s ) Unknown [address] [facility] [address] [address] 07/14/2021 12:00:00 AM EDT eCW1 ([facility]) Unknown [address] [address] 07/09/2021 12:00:00 AM EDT eCW1 ([facility]) Outpatient Attender: SYBIL Grossman/Juan/Vicente/Smith tristan 06/30/2021 04:30:00 PM EDT MEDENT ([facility]) Unknown [address] [address] [address] 06/30/2021 12:00:00 AM EDT eCW1 ([facility]) Unknown [address] [facility] [address] [address] 05/27/2021 12:00:00 AM EDT eCW1 ([facility]) Unknown [address] [facility] [address] [address] 05/11/2021 12:00:00 AM EDT eCW1 ([facility]) Unknown [address] [facility] [address] [address] 04/30/2021 12:00:00 AM EDT eCW1 ([facility]) Outpatient [address] [facility] [address] [address] 04/29/2021 12:00:00 AM EDT eCW1 ([facility]) Unknown [address] [facility] [address] [address] 04/12/2021 12:00:00 AM EDT eCW1 ([facility]) Unknown [address] [facility] [address] [address] 01/19/2021 12:00:00 AM EDT eCW1 ([facility]) Unknown [address] [facility] [address] [place] [address] 12/09/2020 12:00:00 AM EDT eCW1 ([facility]) Outpatient [address] [facility] [place] [address] 11/11/2020 12:00:00 AM EST eCW1 ([facility]) Unknown [address] [facility] [place] [address] 11/06/2020 12:00:00 AM EST eCW1 ([facility]) Unknown [address] [facility] [place] [address] 10/27/2020 12:00:00 AM EST eCW1 ([facility]) Unknown [address] [facility] [place] [address] 10/26/2020 12:00:00 AM EST eCW1 ([facility]) Unknown [address] [facility] [place] [address] 10/20/2020 12:00:00 AM EST eCW1 ([facility]) Unknown [address] [facility] [place] [address] 10/13/2020 12:00:00 AM EST eCW1 ([facility]) Unknown [address] [facility] [place] [address] 10/08/2020 12:00:00 AM EST eCW1 ([facility]) Unknown [address] [facility] [place] [address] 10/02/2020 12:00:00 AM EST eCW1 ([facility]) Unknown [address] [facility] [place] [address] 09/14/2020 12:00:00 AM EST eCW1 ([facility]) Unknown [address] [facility] [place] [address] 09/09/2020 12:00:00 AM EST eCW1 ([facility]) Unknown [address] [facility] [place] [address] 09/08/2020 12:00:00 AM EST eCW1 ([facility]) Unknown [address] [facility] [place] [address] 09/07/2020 12:00:00 AM EST eCW1 ([facility]) Unknown [address] [facility] [place] [address] 08/03/2020 12:00:00 AM EST eCW1 ([facility]) Unknown [address] [facility] [place] [address] 07/27/2020 12:00:00 AM EST eCW1 ([facility]) Immunizations Vaccine Date Status Description Data Source(s) COVID-19 dose #1 given elsewhere Unspecified 04/29/2021 03:3 5:00 PM EDT completed eCW1 ([facility]) COVID-19 dose #1 given elsewhere Unspecified 04/29/2021 03:3 5:00 PM EDT completed eCW1 ([facility]) COVID-19 dose #1 given elsewhere Unspecified 04/29/2021 03:3 5:00 PM EDT completed eCW1 ([facility]) COVID-19 dose #1 given elsewhere Unspecified 04/29/2021 03:3 5:00 PM EDT completed eCW1 ([facility]) COVID-19 dose #1 given elsewhere Unspecified 04/29/2021 03:3 5:00 PM EDT completed eCW1 ([facility]) COVID-19 dose #1 given elsewhere Unspecified 04/29/2021 03:3 5:00 PM EDT completed eCW1 ([facility]) COVID-19 dose #1 given elsewhere Unspecified 04/29/2021 03:3 5:00 PM EDT completed eCW1 ([facility]) COVID-19 VACCINE Analia 02/19/2021 12:00:00 AM EDT completed [employer] Vaccine Series Complete: YESThis Data wa s Submitted to [facility] Via [facility]. influenza, recombinant, quadrIvalent,injectable, prese rvative free 11/11/2020 03:33:00 PM EST completed eCW1 ([facility]) influenza, recombinant, quadrIvalent,injectable, prese rvative free 11/11/2020 03:33:00 PM EST completed eCW1 ([facility]) influenza, recombinant, quadrIvalent,injectable, prese rvative free 11/11/2020 03:33:00 PM EST completed eCW1 ([facility]) influenza, recombinant, quadrIvalent,injectable, prese rvative free 11/11/2020 03:33:00 PM EST completed eCW1 ([facility]) influenza, recombinant, quadrIvalent,injectable, prese rvative free 11/11/2020 03:33:00 PM EST completed eCW1 ([facility]) influenza, recombinant, quadrIvalent,injectable, prese rvative free 11/11/2020 03:33:00 PM EST completed eCW1 ([facility]) influenza, recombinant, quadrIvalent,injectable, prese rvative free 11/11/2020 03:33:00 PM EST completed eCW1 ([facility]) influenza, recombinant, quadrIvalent,injectable, prese rvative free 11/11/2020 03:33:00 PM EST completed eCW1 ([facility]) influenza, recombinant, quadrIvalent,injectable, prese rvative free 11/11/2020 03:33:00 PM EST completed eCW1 ([facility]) influenza, recombinant, quadrIvalent,injectable, prese rvative free 11/11/2020 03:33:00 PM EST completed eCW1 ([facility]) influenza, recombinant, quadrIvalent,injectable, prese rvative free 11/11/2020 03:33:00 PM EST completed eCW1 ([facility]) Medications Medication Brand Name Start Date Product Form Dose Route Admi nistrative Instructions Pharmacy Instructions Status Indications Reaction Description Data Source(s) Lorazepam 1 MG Oral Tablet LORazepam 1 MG LORazepam 1 MG 07/09/2021 12:00:00 AM EDT 1.0 {tablet} active LORazepam 1 MG eCW1 ([facility]) Lorazepam 1 MG Oral Tablet LORazepam 1 MG LORazepam 1 MG 07/09/2021 12:00:00 AM EDT 1.0 {tablet} active LORazepam 1 MG eCW1 ([facility]) 24 HR Bupropion Hydrochloride 150 MG Ext ended Release Oral Tablet buPROPion HCl ER (XL) 150 MG buPROPion HCl ER (XL) 150 MG 04/29/2021 12:00:00 AM EDT 1.0 {tablet_in_the_morning} active buPROPio n HCl ER (XL) 150 MG eCW1 ([facility]) 24 HR Bupropion Hydrochloride 150 MG Ext ended Release Oral Tablet buPROPion HCl ER (XL) 150 MG buPROPion HCl ER (XL) 150 MG 04/29/2021 12:00:00 AM EDT 1.0 {tablet_in_the_morning} active buPROPio n HCl ER (XL) 150 MG eCW1 ([facility]) 24 HR Bupropion Hydrochloride 150 MG Ext ended Release Oral Tablet buPROPion HCl ER (XL) 150 MG buPROPion HCl ER (XL) 150 MG 04/29/2021 12:00:00 AM EDT 1.0 {tablet_in_the_morning} active buPROPio n HCl ER (XL) 150 MG eCW1 ([facility]) 24 HR Bupropion Hydrochloride 150 MG Ext ended Release Oral Tablet buPROPion HCl ER (XL) 150 MG buPROPion HCl ER (XL) 150 MG 04/29/2021 12:00:00 AM EDT 1.0 {tablet_in_the_morning} active buPROPio n HCl ER (XL) 150 MG eCW1 ([facility]) 24 HR Bupropion Hydrochloride 150 MG Ext ended Release Oral Tablet buPROPion HCl ER (XL) 150 MG buPROPion HCl ER (XL) 150 MG 04/29/2021 12:00:00 AM EDT 1.0 {tablet_in_the_morning} active buPROPio n HCl ER (XL) 150 MG eCW1 ([facility]) 24 HR Bupropion Hydrochloride 150 MG Ext ended Release Oral Tablet buPROPion HCl ER (XL) 150 MG buPROPion HCl ER (XL) 150 MG 04/29/2021 12:00:00 AM EDT 1.0 {tablet_in_the_morning} active buPROPio n HCl ER (XL) 150 MG eCW1 ([facility]) 24 HR Bupropion Hydrochloride 150 MG Ext ended Release Oral Tablet buPROPion HCl ER (XL) 150 MG buPROPion HCl ER (XL) 150 MG 04/29/2021 12:00:00 AM EDT 1.0 {tablet_in_the_morning} active buPROPio n HCl ER (XL) 150 MG eCW1 ([facility]) Physical Therapy evaluate and treat UNK 11/11/2020 12:00:00 AM EST active Physical Therapy evaluate and tr eat eCW1 ([facility]) Physical Therapy evaluate and treat UNK 11/11/2020 12:00:00 AM EST suspended Physical Therapy evaluate and tr eat eCW1 ([facility]) Physical Therapy evaluate and treat UNK 11/11/2020 12:00:00 AM EST active Physical Therapy evaluate and tr eat eCW1 ([facility]) Physical Therapy evaluate and treat UNK 11/11/2020 12:00:00 AM EST active Physical Therapy evaluate and tr eat eCW1 ([facility]) Physical Therapy evaluate and treat UNK 11/11/2020 12:00:00 AM EST active Physical Therapy evaluate and tr eat eCW1 ([facility]) Physical Therapy evaluate and treat UNK 11/11/2020 12:00:00 AM EST suspended Physical Therapy evaluate and tr eat eCW1 ([facility]) Physical Therapy evaluate and treat UNK 11/11/2020 12:00:00 AM EST suspended Physical Therapy evaluate and tr eat eCW1 ([facility]) Physical Therapy evaluate and treat UNK 11/11/2020 12:00:00 AM EST suspended Physical Therapy evaluate and tr eat eCW1 ([facility]) Physical Therapy evaluate and treat UNK 11/11/2020 12:00:00 AM EST suspended Physical Therapy evaluate and tr eat eCW1 ([facility]) Physical Therapy evaluate and treat UNK 11/11/2020 12:00:00 AM EST suspended Physical Therapy evaluate and tr eat eCW1 ([facility]) Physical Therapy evaluate and treat UNK 11/11/2020 12:00:00 AM EST suspended Physical Therapy evaluate and tr eat eCW1 ([facility]) Pulse Oximeter For Finger - Pulse Oximeter For Finger - 09/25 12:00:00 AM EST active Pulse Oximeter Fo r Finger - eCW1 ([facility]) Pulse Oximeter For Finger - Pulse Oximeter For Finger - 09/25 12:00:00 AM EST active Pulse Oximeter Fo r Finger - eCW1 ([facility]) Pulse Oximeter For Finger - Pulse Oximeter For Finger - 09/25 12:00:00 AM EST active Pulse Oximeter Fo r Finger - eCW1 ([facility]) Pulse Oximeter For Finger - Pulse Oximeter For Finger - 09/25 12:00:00 AM EST active Pulse Oximeter Fo r Finger - eCW1 ([facility]) Pulse Oximeter For Finger - Pulse Oximeter For Finger - 09/25 12:00:00 AM EST active Pulse Oximeter Fo r Finger - eCW1 ([facility]) Pulse Oximeter For Finger - Pulse Oximeter For Finger - 09/25 12:00:00 AM EST active Pulse Oximeter Fo r Finger - eCW1 ([facility]) Pulse Oximeter For Finger - Pulse Oximeter For Finger - 09/25 12:00:00 AM EST active Pulse Oximeter Fo r Finger - eCW1 ([facility]) Pulse Oximeter For Finger - Pulse Oximeter For Finger - 09/25 12:00:00 AM EST active Pulse Oximeter Fo r Finger - eCW1 ([facility]) Pulse Oximeter For Finger - Pulse Oximeter For Finger - 09/25 12:00:00 AM EST active Pulse Oximeter Fo r Finger - eCW1 ([facility]) Pulse Oximeter For Finger - Pulse Oximeter For Finger - 09/25 12:00:00 AM EST active Pulse Oximeter Fo r Finger - eCW1 ([facility]) Pulse Oximeter For Finger - Pulse Oximeter For Finger - 09/25 12:00:00 AM EST active Pulse Oximeter Fo r Finger - eCW1 ([facility]) Pulse Oximeter For Finger - Pulse Oximeter For Finger - 09/25 12:00:00 AM EST active Pulse Oximeter Fo r Finger - eCW1 ([facility]) Pulse Oximeter For Finger - Pulse Oximeter For Finger - 09/25 12:00:00 AM EST active Pulse Oximeter Fo r Finger - eCW1 ([facility]) Pulse Oximeter For Finger - Pulse Oximeter For Finger - 09/25 12:00:00 AM EST active Pulse Oximeter Fo r Finger - eCW1 ([facility]) Pulse Oximeter For Finger - Pulse Oximeter For Finger - 09/25 12:00:00 AM EST active Pulse Oximeter Fo r Finger - eCW1 ([facility]) Pulse Oximeter For Finger - Pulse Oximeter For Finger - 09/25 12:00:00 AM EST active Pulse Oximeter Fo r Finger - eCW1 ([facility]) Pulse Oximeter For Finger - Pulse Oximeter For Finger - 09/25 12:00:00 AM EST active Pulse Oximeter Fo r Finger - eCW1 ([facility]) Insurance Providers Payer name Policy type / Coverage type Policy ID Covered alliance party ID Covered alliance party's relationship to kitchen Policy Kitchen Plan Information BCBS GENERIC C [id number] Self [id number] [place] 306/806 [id number] SP [id number] SELF PAY ONLY [id number] SP [id number] BCBS [employer] P [id number] S [id number] EXCELLUS BCBS B [id number] S B [id number] [place] 306/806 [id number] SP [id number] D Excellus BCBS Dental P B [id number] S B [id number] [facility] [id number] [facility] [id number] ANSI-Commercial [id number] ANSI-Commercial [id number] ANSI-Commercial [id number] ANSI-Commercial [id number] ANSI-Commercial [id number]-[id number]-9yhr-[id number] si68wdxv-0b32-5j4t-7eow-7b4ntu9wh25v ANSI-Commercial [id number] ANSI-Commercial [id number] ANSI-Commercial [id number] [id number]-[id number] ANSI-Commercial [id number]-681z-2l74-[id number]-070k-1c79-[id number] ANSI-Commercial [id number]-[id number] ANSI-Commercial [id number]-7f7r-7p2t-g0uf-[id number] 5152480t-7z5c-6r2s-y8ht-6d96g9g2fj7h ANSI-Commercial [id number]-f788-[id number] 6hrzv706-9w11-9k82-h920-[id number] ANSI-Commercial [id number]-[id number] [id number]-a087-55kif3964e2r ANSI-Commercial 19794t7z-0bgw-3246-2827-[id number] 42536v8t-7giu-0413-7667-u7407k7e7102 ANSI-Commercial g4xlz980-65th-16l0-9k93-72e068ea221l v4egl655-71qk-64t1-3a46-76q759sm148h ANSI-Commercial 37uly90z-o954-3gdf-[id number] 74khl20l-w619-6pbx-0o88-726415ud5e73 [place] PPO 302/307 [id number] SP [id number] ANSI-Commercial [id number] ANSI-Commercial 41u9c06u-vtn2-349z-fzzx-2v2kg38t7e86 60r3m58e-buj6-062t-zksg-3w2wf15z3m99 ANSI-Commercial 5e4wgi4c-o14d-7n3o-5130-0g3369k903mb 8h6vxq4m-y86i-6g4b-1496-5v1952z161fe ANSI-Commercial m8hv4v12-uv9a-914d-4c5j-[id number] b0la9d14-cg4v-745f-3e4p-[id number] ANSI-Commercial 76142q48-h6p5-5f14-f3h3-j69231l3i1y4 61603v92-s5w0-6y88-a1u3-t08914v7a2b0 ANSI-Commercial 9w8um63y-a423-5wjf-o0f3-04gbw80sad09 6k3bm87x-g338-9jab-k5c6-12iec89ovb22 ANSI-Commercial [id number]-x631-473w-e312-a5n9744sw31d 4jh87843-a604-843q-k418-g0u0659ms25k ANSI-Commercial jc18788v-iw40-3477-ki8r-45x694qd6d4c mh18210f-ri72-6771-fa3u-26r698pf8s8e ANSI-Commercial d4pe093w-ew81-49l2-ry6d-68wtb5vwfw76 l4gd572e-iq77-27q1-na2u-28ehl6iuqp99 ANSI-Commercial 7j37sm1w-vkq2-3t72-54ud-0688hx3a29q6 4v67dd1r-ebx1-6h15-30jh-1522fm6e46u9 ANSI-Commercial 8029fhyb-7u37-78535c19-8551-44k8-49832u4803tu 2426qkfv-3z03-83438t72-1529-82o2-69213s1311gn ANSI-Commercial vi8smh91-bcvt-349o-pzv8-m046p1y9659u fl7gho25-eagk-931b-awh5-p706y7s0812m ANSI-Commercial 039zk2ap-9a79-7486-9068-2km8856re8n0 751ho3rr-7m62-4365-7150-6fb5434ma2m8 ANSI-Commercial 81m217su-b73t-9y6t-n5g7-6q018004023d 18o639yv-s74y-1j5b-y1d2-7t900759211p ANSI-Commercial v7fz080i-7d19-275b-0506-599m41y22nv3 y9do899z-3c90-303b-6026-552f10v92tl9 ANSI-Commercial n27j8y63-72tw-8513-7s78-h8737rj1e426 r24w0e34-56ss-4923-8r76-j3534ag1i953 ANSI-Commercial j1808bth-07q8-35f5-4586-qy968853639m e4644gdc-91z9-32k2-2226-yp332642157h ANSI-Commercial 939h48k0-a6jk-10z9-69sf-tk21k7k3v333 471d43x5-e0yn-51n8-06wh-vq49h5s5b663 ANSI-Commercial 9x072622-lb9q-5hz8-ab3e-609951f54lqu 6s124112-tk7a-7si8-lj4i-876930c52dqg ANSI-Commercial k033978x-4n31-6d06-3858-162l8w98b9tv t559112v-6g43-5w17-1197-936r5i05r9zl ANSI-Commercial sk6w2k2s-a1k0-8197-6dns-008ptswuhc5l ov9t7l1z-a5r2-3390-1fdo-425kntxjhw6z ANSI-Commercial eh987909-2o7j-4ah8-6936-b687p88d7l04 my472668-6e8v-5gq8-9941-z434z67b7l23 ANSI-Commercial 80v3x662-q0fz-1keh-3003-50y2k3qb9991 50s0a368-h3nu-8qvp-1657-03w9u3bx2300 ANSI-Commercial 4197l76q-5m6e-98dw-t424-e7dn295944zi 5817s99f-8e7v-66js-n200-s7lu692603tw ANSI-Commercial 44363mqp-ce05-8n98-v185-2kc411d799b5 66365rul-mg72-4p39-b031-9gq430b135b5 ANSI-Commercial 615ava3a-2242-8038-wf23-i2p9z1c85ra2 696rti3c-3886-4262-ti99-p9s7w8z21qt5 ANSI-Commercial 83a8n16l-61r2-1s9l-i85l-nfn08h6i1ke1 98e6t88d-53q6-3z4r-h36v-eny75u3z9rb4 ANSI-Commercial vq1xad7m-0b3r-4y78-2621-t61a7w70sy38 gb6shh2q-6a7r-7x42-5800-h11r1v61vw17 ANSI-Commercial 1583336n-04m9-5850-z5o3-o9p65r7r8545 6570456j-84s1-5044-q1l4-i1y35z5j4723 ANSI-Commercial 0m0665r3-pv82-2861-9u86-tl222723gp9a 9w8046l6-zz50-0302-7v38-ee518094wq5d ANSI-Commercial u582g0fq-l6n4-2mq1-05z5-693710p757e7 k663o1ca-j8t9-0el3-98y4-664829b012k7 ANSI-Commercial 9p3642u2-1qs4-946o-pa05-ko934976ck32 1p2245c8-7ox6-990z-ke50-si059582vy52 ANSI-Commercial g721o316-6n98-2839-52f4-062rb9a91007 g126g537-8m85-0554-29a5-701cl5u64792 ANSI-Commercial 716984jy-8a7i-563p-q1j6-v31th139x2c5 835128qv-8n6l-569h-h1g0-g14ue935s5d9 ANSI-Commercial r2o23h1y-1256-0519-0v06-v38fl1659i6x i8v15l1c-7937-4402-5u23-q27sd0625t9c ANSI-Commercial 9446a3q3-ok8q-992t-i5s1-p95r9q9c9011 7679z8z8-ki9q-487a-y9x4-p30i6h3x9525 ANSI-Commercial 24kk5v04-5323-4jqw-8453-swd6f2d1s8hg 40ws8r60-5921-2fox-7527-fxk8m4w0j6ex ANSI-Commercial 2u2929h5-7p82-7g12-lj0k-3k7h87r69l2j 4a2207u3-4x63-0t23-cw7x-8i9b39c29s9h ANSI-Commercial f1875k76-87a5-843o-yc99-d4495jw9o758 j4025j78-02u3-942r-fc68-t4801mb6u954 ANSI-Commercial 624y81cf-8792-185z-76a9-68y7chsdq8zk 144l69tu-3059-242b-39c9-78s0cmszl7ns ANSI-Commercial 71x60085-6069-3059-33o2-9183868t9n68 53p73747-4122-2075-53x0-7516839z9d04 ANSI-Commercial 43s1o3nr-fjvt-9w56-g52m-11098opo555f 00s6a2kc-wxxl-5t67-o05l-62245plp992p ANSI-Commercial 7u96031y-prnc-9q33-1923-2t1h641v7s2r 8m48980t-meav-4j87-0787-3w4d291q6m9f ANSI-Commercial 3a17n1w4-h41v-2k35-v44k-p61d134yab6z 9w46q4o9-k01q-0i78-b82u-k17z912vgg3q ANSI-Commercial a2z5p57k-0qiy-7dv6-08y8-29g1685275z3 x2f0i02m-4cvi-2as4-24t1-23h8507148j1 ANSI-Commercial b7orf5l7-2552-4370-o1hy-y2zot12vp2rw v7blb1g6-6993-7706-y7od-s2xzx93ty8tm ANSI-Commercial 7td5y261-r7t4-405k-v39n-e2863z5715xi 8ms7l518-m8c9-204x-l97v-i3459e6039rk ANSI-Commercial 3w7470wj-k933-18jy-fxfk-88n18688uj48 3n7207rl-f922-19wn-offq-26f38702yz27 ANSI-Commercial m2696wnk-9ax2-2kue-b55s-9x96345ft853 r1573rjf-8bx8-4odg-k87t-7a62485jb693 ANSI-Commercial 6661769q-qcx4-3680-ve9b-531845y3a730 0030811a-ggs4-0191-rj2d-564144i4r830 ANSI-Commercial uld00437-w2i0-0d8i-34p9-c94ke33205i4 lpv81323-b0k8-2y4u-69l8-y46ig29454u5 ANSI-Commercial 5ktz642s-e68k-49s3-6hl9-p60l7b3s4shr 2vaf514i-h72j-97i1-3ji4-r78x0b8g6kmc ANSI-Commercial 6l140gu1-7710-00ib-28ou-3v78b4p6b25t 9q073av1-2580-19hz-91ft-7w09z9x3s74u ANSI-Commercial 99l06579-7os0-1w5s-6v7c-663z28wf363n 12w44515-7ir9-7e3i-6p6t-507h86tz517l ANSI-Commercial sk4h843v-p4l4-1us6-o7fy-024901naq840 ov4f558e-p7x7-0uc9-t3wg-897181nuk797 ANSI-Commercial aw0spg55-4p97-6126-2i3n-38k0ksh589m3 sp4umn75-9x86-8011-9g5t-11q9kfe615s1 ANSI-Commercial m4917wqi-gw60-4p80-c303-3528r8vc0643 c1327tkw-gu53-7u81-v027-4443x8cj2962 ANSI-Commercial 792f4336-x4bd-4f94-6jk4-02x39q20j476 244s4091-o1af-9c67-1qy8-39w54c59x874 ANSI-Commercial 085q63cl-2yv8-7k8h-di4o-m5bx7c27c37q 304t09is-3fh2-9h4v-ww2i-m8yx9d43k68n ANSI-Commercial esfl0k99-l4g7-009n-u242-so8k01mg5gpn srsr6c96-u9n8-507r-e920-mu3a87yd8qaa ANSI-Commercial 95175oax-13ig-17c0-in9f-248f6g3a7b53 74415rms-59sl-59t1-ab2u-062u6y3q6o16 ANSI-Commercial 8113j046-xf63-5174-48h1-b3p51rz4391v 8581v088-zo52-1755-94i6-j8j42wd4488w ANSI-Commercial y316cv90-ijkn-85mw-07s9-y184gk958j3q i582xl64-nwtb-86qo-62a3-k971dj779k0l ANSI-Commercial 004142m8-3g5q-324h-ry4a-to93381x6z14 249643s4-3k5f-218g-tp1l-zy69776d4l45 ANSI-Commercial f79a1tp4-ay72-1m08-79vi-a5r9p196m266 d71l8pp8-bb29-6x02-43bw-c0g9n249s869 ANSI-Commercial 371h60c6-o03t-76et-zcj5-04b65k92wr95 722p73o4-x92h-76kw-yne3-76n82b70oj01 ANSI-Commercial 59git4xt-xowi-944w-a43v-taw898r71425 94ybx7lf-ircw-728h-o37t-ljd837a55700 ANSI-Commercial 6o286f2u-29d4-5476-d090-j4431o47u501 5e907d9e-69g3-5240-j808-a3575r08r883 ANSI-Commercial z9462b3z-9ea0-6g88-21u7-3vmr17u1gg0t [id number] ANSI-Commercial [id number] ANSI-Commercial [id number] ANSI-Commercial [id number] ANSI-Commercial [id number] ANSI-Commercial [id number] ANSI-Commercial [id number] ANSI-Commercial [id number] ANSI-Commercial [id number] ANSI-Commercial [id number] [place] P[place] 302/307 [id number] SP [id number] BCBS .[id number] Blue Cross/Bl ue Shield [id number] MVP [id number] Commercial Ins urance Co. [id number] BCBS .[id number] Blue Cross/Bl ue Shield [id number] [facility] [id number] SP [id number] BCBS/[employer] Commercial [id number]. [id number] Self [id number] BLUE CROSS BLUE SHIELD -RECURRING [id number] 18 [id number] [place]BS [place] PPO 302/307 [id number] HU2 [id number] [facility] 040 [id number] HU2 [id number] [place] [place] PPO 302/307 [id number] HU2 [id number] [facility] [id number] SP [id number] [facility] [id number] SP [id number] [facility] NO FAULT [id number] SP [id number] BLUE CROSS [facility] 040 [id number] HU2 [id number] Problems, Conditions, and Diagnoses No Information Surgeries/Procedures Procedure Description Date Indications Data Source(s) Spirometry 06/30/2021 12:00:00 AM EDT M EDENT ([facility], ) OFFICE OUTPATIENT VISIT 15 MINUTES 06/30/2021 12:00:00 AM EDT MEDENT ([facility], ) Imm: Flublok Quadrivalent 18 years & older 0.5mL IM Influenz a 11/11/2020 12:00:00 AM EST eCW1 ([facility]) Results ID Date Data Source [id number] 06/30/2021 04:09:00 PM EDT MEDENT ([facility], ) Name Value Range Interpretation Code Description Data Jigna rce(s) Supporting Document(s) PDFReport Laboratory test result MEDENT ([facility], ) FVC-Pred 3.18 L MEDENT ([facility]) FVC-Pre 3.04 L MEDENT ([facility]) Fev1-Pred 2.46 L MEDENT ([facility]) FVC-%Pred-Pre 95 L MEDENT ([facility]) FVC-LLN 2.51 L MEDENT ([facility]) Fev1-Pre 2.32 L MEDENT ([facility]) Fev1-%Pred-Pre 94 L MEDENT ([facility]) Fev1-LLN 1.89 L MEDENT ([facility]) Fev6-Pre 3.03 L MEDENT ([facility]) Fev6-Pred 3.07 L MEDENT ([facility]) Fev6-%Pred-Pre 98 L MEDENT ([facility]) Fev6-LLN 2.41 L MEDENT ([facility]) Luf7wjw-Ssmg 78 % MEDENT ([facility]) Lmf8lbc-Znu 76 % MEDENT ([facility]) Ajp7vvk-%Pred-Pre 97 % MEDENT ([facility]) Xsk2cnn-Ctj 99 % MEDENT ([facility]) Vsf7rkk-Vztw 96 % MEDENT ([facility]) Rcm5rie-YIB 68 % MEDENT ([facility]) Cle5ijg-%Pred-Pre 103 % MEDENT ([facility]) FEFMax-Pre 6.96 L/E/sec MEDENT ([facility]) FEFMax-Pred 6.14 L/E/sec MEDENT ([facility]) FEFMax-%Pred-Pre 113 L/E/sec MEDENT ([facility]) Nhi0007-Oymk 2.29 L/E/sec MEDENT ([facility]) FEFMax-LLN 4.48 L/E/sec MEDENT ([facility]) Vmk1904-%Pred-Pre 80 L/E/sec MEDENT ([facility]) Bic6738-Qnk 1.85 L/E/sec MEDENT ([facility]) ExpTime-Pre 7.08 sec MEDENT ([facility]) Fxl6nld0-Xdhw 81 % MEDENT ([facility]) Pcm0830-PAV 1.09 L/E/sec MEDENT ([facility]) Ley0cxv3-Wez 77 % MEDENT ([facility]) Ccc8ykw2-%Pred-Pre 94 % MEDENT ([facility]) Dsi5dix8-SJO 72 % MEDENT ([facility]) ID Date Data Source [id number] 11/27/2020 09:05:00 AM EST MEDENT ([facility]) Name Value Range Interpretation Code Description Data Jigna rce(s) Supporting Document(s) PDFReport Laboratory test result MEDENT ([facility]) Do the PFT on maintenance inhaled medi cations. FVC-Pred 3.21 L MEDENT ([facility]) Do the PFT on maintenance inhaled medi cations. FVC-%Pred-Pre 98 L MEDENT ([facility]) Do the PFT on maintenance inhaled medi cations. FVC-Pre 3.17 L MEDENT ([facility]) Do the PFT on maintenance inhaled medi cations. FVC-LLN 2.54 L MEDENT ([facility]) Do the PFT on maintenance inhaled medi cations. Fev1-Pred 2.49 L MEDENT ([facility]) Do the PFT on maintenance inhaled medi cations. Fev1-Pre 2.52 L MEDENT ([facility]) Do the PFT on maintenance inhaled medi cations. Fev1-LLN 1.92 L MEDENT ([facility]) Do the PFT on maintenance inhaled medi cations. Fev1-%Pred-Pre 101 L MEDENT ([facility]) Do the PFT on maintenance inhaled medi cations. Fev6-Pred 3.10 L MEDENT ([facility]) Do the PFT on maintenance inhaled medi cations. Fev6-%Pred-Pre 102 L MEDENT ([facility]) Do the PFT on maintenance inhaled medi cations. Fev6-Pre 3.17 L MEDENT ([facility]) Do the PFT on maintenance inhaled medi cations. Okg6ino-Dnew 78 % MEDENT ([facility]) Do the PFT on maintenance inhaled medi cations. Fev6-LLN 2.44 L MEDENT ([facility]) Do the PFT on maintenance inhaled medi cations. Kbh3mxn-Wzh 80 % MEDENT ([facility]) Do the PFT on maintenance inhaled medi cations. Vbr7qxg-%Pred-Pre 101 % MEDENT ([facility]) Do the PFT on maintenance inhaled medi cations. Hxv6slb-Ovwc 97 % MEDENT ([facility]) Do the PFT on maintenance inhaled medi cations. Ool9bjg-NWI 68 % MEDENT ([facility]) Do the PFT on maintenance inhaled medi cations. Pcd9ejc-Wtd 100 % MEDENT ([facility]) Do the PFT on maintenance inhaled medi cations. Tqj3hue-%Pred-Pre 103 % MEDENT ([facility]) Do the PFT on maintenance inhaled medi cations. FEFMax-Pred 6.19 L/E/sec MEDENT ([facility]) Do the PFT on maintenance inhaled medi cations. FEFMax-LLN 4.53 L/E/sec MEDENT ([facility]) Do the PFT on maintenance inhaled medi cations. FEFMax-%Pred-Pre 108 L/E/sec MEDENT ([facility]) Do the PFT on maintenance inhaled medi cations. FEFMax-Pre 6.71 L/E/sec MEDENT ([facility]) Do the PFT on maintenance inhaled medi cations. Gwh2233-Jjg 2.36 L/E/sec MEDENT ([facility]) Do the PFT on maintenance inhaled medi cations. Lep7513-%Pred-Pre 101 L/E/sec MEDENT ([facility]) Do the PFT on maintenance inhaled medi cations. Gib5387-Xgly 2.34 L/E/sec MEDENT ([facility]) Do the PFT on maintenance inhaled medi cations. Xwy6cmo6-Jnca 81 % MEDENT ([facility]) Do the PFT on maintenance inhaled medi cations. Iqm1226-MRT 1.13 L/E/sec MEDENT ([facility]) Do the PFT on maintenance inhaled medi cations. ExpTime-Pre 5.99 sec MEDENT ([facility]) Do the PFT on maintenance inhaled medi cations. Szd9huf8-NNH 72 % MEDENT ([facility]) Do the PFT on maintenance inhaled medi cations. Kqn5isi5-Mbu 80 % MEDENT ([facility]) Do the PFT on maintenance inhaled medi cations. Slw4ero3-%Pred-Pre 98 % MEDENT ([facility]) Do the PFT on maintenance inhaled medi cations. ID Date Data Source [id number] 10/04/2020 12:00:00 AM EST [facility] Name Value Range Interpretation Code Description Data Jigna rce(s) Supporting Document(s) SARS-CoV-2 (COVID-19) RNA [Presence] in Respiratory specimen by SONAL with probe detection Positive for [facility] This [facility] was ordered by [facility] and reported by [employer]. Procedure Social History Code Duration Value Status Description Data Source(s ) Smoking 06/30/2021 12:00:00 AM EDT Patient is a former smoker completed Patient is a former smoker DIONE ([facility], ) Smoking 04/29/2021 12:00:00 AM EDT Never Smoker completed Never S moker eCW1 ([facility]) Smoking 04/29/2021 12:00:00 AM EDT Never Smoker completed Never S moker eCW1 ([facility]) Smoking 04/29/2021 12:00:00 AM EDT Never Smoker completed Never S moker eCW1 ([facility]) Smoking 04/29/2021 12:00:00 AM EDT Never Smoker completed Never S moker eCW1 ([facility]) Smoking 04/29/2021 12:00:00 AM EDT Never Smoker completed Never S moker eCW1 ([facility]) Smoking 04/29/2021 12:00:00 AM EDT Never Smoker completed Never S moker eCW1 ([facility]) Smoking 04/29/2021 12:00:00 AM EDT Never Smoker completed Never S moker eCW1 ([facility]) Smoking 11/11/2020 12:00:00 AM EST Never Smoker completed Never S moker eCW1 ([facility]) Smoking 11/11/2020 12:00:00 AM EST Never Smoker completed Never S moker eCW1 ([facility]) Smoking 11/11/2020 12:00:00 AM EST Never Smoker completed Never S moker eCW1 ([facility]) Smoking 11/11/2020 12:00:00 AM EST Never Smoker completed Never S moker eCW1 ([facility]) Vital Signs ID Date Data Source UNK Name Value Range Interpretation Code Description Data Source(s) Diastolic blood pressure 60 mm[Hg] 60 mm[Hg] DIONE ([facility], ) Oxygen saturation in Arterial blood by Pulse oximetry 98 % 98 % DIONE ([facility]) Body height 63 [in_i] 63 [in_i] [facility] ([facility]) 5'3" Body weight 172.00 [lb_av] 172.00 [lb_av] MEDEN T ([facility]) Body mass index (BMI) [Ratio] 30.5 kg/m2 30.5 k g/m2 [facility] ([facility]) Boring body weight 115 [lb_av] 115 [lb_av] [facility] Body surface area Derived from formula 1.81 m2 1.81 m2 [facility] ([facility]) Body weight 78.019 kg 78.019 kg [facility] ([facility]) Heart rate 106 /min 106 /min [facility] ([facility]) Systolic blood pressure 126 mm[Hg] 126 mm[Hg] [facility] ([facility]) Body weight 174 [lb_av] 174 [lb_av] eCW1 ([facility]) Body height 62 [in_i] 62 [in_i] eCW1 ([facility]) Systolic blood pressure 110 mm[Hg] 110 mm[Hg] e CW1 ([facility]) Body mass index (BMI) [Ratio] 31.82 kg/m2 31.82 kg/m2 W1 ([facility]) Heart rate 86 /min 86 /min eCW1 ([facility]) Respiratory rate 20 /min 20 /min eCW1 ([facility]) Body temperature 97.2 [degF] 97.2 [degF] eCW1 ( [facility]) Diastolic blood pressure 70 mm[Hg] 70 mm[Hg] eCW1 ([facility]) Body mass index (BMI) [Ratio] 31.7 kg/m2 31.7 k g/m2 [facility] ([facility]) Diastolic blood pressure 78 mm[Hg] 78 mm[Hg] [facility] ([facility]) Systolic blood pressure 118 mm[Hg] 118 mm[Hg] [facility] ([facility]) Boring body weight 115 [lb_av] 115 [lb_av] MEDEN T ([facility]) Body weight 81.194 kg 81.194 kg [facility] ([facility]) Body surface area Derived from formula 1.84 m2 1.84 m2 [facility] ([facility]) Heart rate 80 /min 80 /min [facility] ([facility]) Oxygen saturation in Arterial blood by Pulse oximetry 98 % 98 % [facility] ([facility]) Room Air Body height 63 [in_i] 63 [in_i] [facility] ([facility]) 5'3" Body weight 179.00 [lb_av] 179.00 [lb_av] MEDEN T ([facility]) Body mass index (BMI) [Ratio] 31.7 kg/m2 31.7 k g/m2 [facility] ([facility]) Boring body weight 115 [lb_av] 115 [lb_av] MEDEN T ([facility]) Body weight 81.194 kg 81.194 kg [facility] ([facility]) Body surface area Derived from formula 1.84 m2 1.84 m2 [facility] ([facility]) Oxygen saturation in Arterial blood by Pulse oximetry 98 % 98 % [facility] ([facility]) Room Air Body height 63 [in_i] 63 [in_i] [facility] ([facility]) 5'3" Body weight 179.00 [lb_av] 179.00 [lb_av] MEDEN T ([facility]) Body weight 183 [lb_av] 183 [lb_av] eCW1 ([facility]) Body height 62 [in_i] 62 [in_i] eCW1 ([facility]) Body mass index (BMI) [Ratio] 33.47 kg/m2 33.47 kg/m2 W1 ([facility]) Heart rate 88 /min 88 /min eCW1 ([facility]) Respiratory rate 20 /min 20 /min eCW1 ([facility]) Body temperature 97.9 [degF] 97.9 [degF] eCW1 ( [facility]) Systolic blood pressure 110 mm[Hg] 110 mm[Hg] e CW1 ([facility]) Diastolic blood pressure 80 mm[Hg] 80 mm[Hg] eCW1 ([facility]) Patient Treatment Plan of Care Planned Activity Planned Date Details Description Data Source (s) Lorazepam 1 MG Oral Tablet 07/09/2021 12:00:00 AM EDT eCW1 ([facility]) Lorazepam 1 MG Oral Tablet 07/09/2021 12:00:00 AM EDT eCW1 ([facility]) 24 HR Bupropion Hydrochloride 150 MG Extended Release Oral Tablet 04/29/2021 12:00:00 AM EDT eCW1 ([facility]) 24 HR Bupropion Hydrochloride 150 MG Extended Release Oral Tablet 04/29/2021 12:00:00 AM EDT eCW1 ([facility]) 24 HR Bupropion Hydrochloride 150 MG Extended Release Oral Tablet 04/29/2021 12:00:00 AM EDT eCW1 ([facility]) 24 HR Bupropion Hydrochloride 150 MG Extended Release Oral Tablet 04/29/2021 12:00:00 AM EDT eCW1 ([facility]) 24 HR Bupropion Hydrochloride 150 MG Extended Release Oral Tablet 04/29/2021 12:00:00 AM EDT eCW1 ([facility]) 24 HR Bupropion Hydrochloride 150 MG Extended Release Oral Tablet 04/29/2021 12:00:00 AM EDT eCW1 ([facility]) 24 HR Bupropion Hydrochloride 150 MG Extended Release Oral Tablet 04/29/2021 12:00:00 AM EDT eCW1 ([facility]) Physical Therapy evaluate and treat 11/11/2020 12:00:00 AM EST eCW1 ([facility]) Physical Therapy evaluate and treat 11/11/2020 12:00:00 AM EST eCW1 ([facility]) Physical Therapy evaluate and treat 11/11/2020 12:00:00 AM EST eCW1 ([facility]) Physical Therapy evaluate and treat 11/11/2020 12:00:00 AM EST eCW1 ([facility]) Pulse Oximeter For Finger - 10/08/2020 12:00:00 AM EST eCW1 ([facility]) Pulse Oximeter For Finger - 10/08/2020 12:00:00 AM EST eCW1 ([facility]) Pulse Oximeter For Finger - 10/08/2020 12:00:00 AM EST eCW1 ([facility]) Pulse Oximeter For Finger - 10/08/2020 12:00:00 AM EST eCW1 ([facility]) Pulse Oximeter For Finger - 10/08/2020 12:00:00 AM EST eCW1 ([facility]) Pulse Oximeter For Finger - 10/08/2020 12:00:00 AM EST eCW1 ([facility])
--- OUTSIDE RECORDS SUMMARY | 2021-08-27 16:59 | CCD | Continuity of Care Document ---
Author Nicole Carrero N.P. Organization Unknown Address [address] [place] [address] Phone [phone] Care Team Providers Care Duplex Trimmer Name Role Phone Shyanne Peguero AUTM [phone] AUTM Unavailable Problems Description No Active Problems [...] lb BMI (Body Mass Index) 30.5 kg/m2 [place] Body Weight 115 lb Weight 78.019 kg BSA (Body Surface Area) 1.81 m2 11/27/2020 9:11am BP Systolic 118 mmHg BP Diastolic 78 mmHg Heart Rate 80 /min O2 % BldC Oximetry 98 % Room Air Height 63 inches 5'3" Weight 179.00 lb BMI (Body Mass Index) 31.7 kg/m2 [place] Body Weight 115 lb Weight 81.194 kg [...] L Fev6-%Pred-Pre 98 L Fev6-LLN 2.41 L Jpu0ufw-Qyer 78 % Qtr2zhe-Dqk 76 % Pew5urm-%Pred-Pre 97 % Otu2kqg-EYR 68 % Jqe6hpc-Jfck 96 % Ske3hqz-Krs 99 % Ilw7hrf-%Pred-Pre 103 % FEFMax-Pred 6.14 L/E/sec FEFMax-Pre 6.96 L/E/sec FEFMax-%Pred-Pre 113 L/E/sec FEFMax-LLN 4.48 L/E/sec Arn2596-Ahsv 2.29 L/E/sec Vrc5903-Hdw 1.85 L/E/sec Quj9006-%Pred-Pre 80 L/E/sec Nkw5478-OOG 1.09 L/E/sec ExpTime-Pre 7.08 sec Uta9vbj7-Xlmf 81 % Scs2wrr5-Aro 77 % Xdu4hwg8-%Pred-Pre 94 % Iqg7pgc5-TTC 72 % Procedures Description No Information Available [...]
--- OUTSIDE RECORDS SUMMARY | 2021-08-27 16:59 | CCD | Continuity of Care Document ---
Author Nicole Carrero N.P. Organization Unknown Address [address] [place] [address] Phone [phone] Care Team Providers Care Slicing Machine Tender Name Role Phone Shyanne Peguero AUTM [phone] AUTM Unavailable Problems Description No Active Problems [...] lb BMI (Body Mass Index) 30.5 kg/m2 [place] Body Weight 115 lb Weight 78.019 kg BSA (Body Surface Area) 1.81 m2 11/27/2020 9:11am BP Systolic 118 mmHg BP Diastolic 78 mmHg Heart Rate 80 /min O2 % BldC Oximetry 98 % Room Air Height 63 inches 5'3" Weight 179.00 lb BMI (Body Mass Index) 31.7 kg/m2 [place] Body Weight 115 lb Weight 81.194 kg [...] L Fev6-%Pred-Pre 98 L Fev6-LLN 2.41 L Qsx2lrk-Hghd 78 % Dbe6pil-Pqn 76 % Ugi0gdo-%Pred-Pre 97 % Gqa0hub-GZF 68 % Rrq2lgu-Bwpo 96 % Rkt7rcz-Jeh 99 % Fen2kal-%Pred-Pre 103 % FEFMax-Pred 6.14 L/E/sec FEFMax-Pre 6.96 L/E/sec FEFMax-%Pred-Pre 113 L/E/sec FEFMax-LLN 4.48 L/E/sec Bnv9576-Igbf 2.29 L/E/sec Bda7277-Fad 1.85 L/E/sec Isw8344-%Pred-Pre 80 L/E/sec Ift8506-KGP 1.09 L/E/sec ExpTime-Pre 7.08 sec Tpm2mzt9-Hwyd 81 % Lnq9qzs0-Pmv 77 % Acq1omp7-%Pred-Pre 94 % Qmf5jsq4-CWD 72 % Procedures Description No Information Available [...]
--- OUTSIDE RECORDS SUMMARY | 2021-08-27 16:59 | CCD ---
Author Author [facility] Organization [facility] Address Unknown Phone Unavailable Care Team Providers Care Cutter Woodwind Reeds Name Role Phone Shyanne Peguero Unavailable PROBLEMS Type Condition ICD9-CM Code ZPP20-AR Code Onset Dates Condition S tatus W/U Status Risk SNOMED Code Notes Problem Allergic rhinitis J30.9 Active confirmed 61 113717 Problem Mixed hyperlipidemia E78.2 Active confirmed 398375805 Problem Unspecified asthma with (acute) exacerbation J45.9 01 Active confirmed 403356627 Problem Vitamin D deficiency E55.9 Active confirmed 85994867 Problem Moderate persistent asthma without complication J4 5.40 Active confirmed 566519971 Problem Intermittent asthma, uncomplicated J45.20 Activ e confirmed 132929542 Problem Obesity (BMI 30-39.9) E66.9 Active confirmed 139329699 Problem Symptomatic menopausal or female climacteric states N95.1 Active confirmed 71918772 Problem Asthma exacerbation J45.901 Active confirmed 442265119 Problem Acquired absence of both cervix and uterus Z90.710 Active confirmed 762283576 Problem Anxiety F41.9 Active confirmed 31075048 Problem Single current episode of ma tomi depressive disorder, unspecified depression episode severity F32.9 Active confirmed 26 1527511 Problem Generalized anxiety disorder F41.1 Active confirme d 97106799 Problem Major depressive disorder, recurrent, moderate F33 .1 Active confirmed 220709537 Problem Vertigo R42 Active confirmed 925540519 Problem Gastroesophageal reflux disease without esophagitis K21.9 Active confirmed 779076250 Problem Environmental allergies Z91.09 Active confirmed 266392565 Problem Other depression F32.89 Active confirmed 354 12960 Problem Essential hypertension I10 Active confirmed 56192037 Problem Mild intermittent asthma with acute exacerbation J 45.21 Active confirmed 246750525 Problem Adjustment disorder with mixed anxiety and depressed mood F43.23 Active confirmed 07137927 Problem Major depressive disorder, single episode, moderate F32.1 Active confirmed 94955502 Problem Exacerbation of asthma, unsp ecified asthma severity, unspecified whether persistent J45.901 Active confirmed 997700017 Problem Left bundle branch block I44.7 Active confirmed 82153992 ALLERGIES Allergen (clinical drug ingredient) Drug/Non Drug Allergy do cumented on EMR Reaction Allergy Type Onset Date Status pravastatin Pravastatin Sodium([facility] Code:[address]-29) short ness of breath Drug Allergy Active sulfamethoxazole / trimethoprim Bactrim([facility] Code:[address]-63) hives Drug Allergy Active atorvastatin Atorvastatin Calcium([facility] Code:[address]-59) ella rtness of breath Drug Allergy Active ENCOUNTERS from 1960 to 2021-07-07 Encounter Location Date Provider Diagnosis [address] [phone] [place] [address] Jun, Shyanne Peguero Mixed hyperlipidemia E78.2 ; Essential hypertension I10 and Gastroesophageal reflux disease without esophagitis K21.9 IMMUNIZATIONS Vaccine Route Administration Date Status Influenza 18 yrs & older Flublok IM Intramuscular Nov 11, 2020 Administered COVID-19 dose #1 given elsewhere Unspecified Unknown [...] Education Language: Question Answer Notes Languages spoken: Ukrainian Roman Catholic: Question Answer Notes Roman Catholic 21 Evangelical Sexual Hx: Question Answer Notes Had sex [...] every 4 hrs for 90 day(s) Active Meclizine HCl 25 mg 1 tablet as needed Orally tw ice daily as needed for 90 day(s) Jul, Active Chlorthalidone 25 mg 1/2 tablet in the morning Orally Once a day for 90 days Active Breo Ellipta 100-25 MCG/INH 1 puff Inhalation Once a day for 90 days Active Pulse Oximeter For Finger - as directed DX: + COVID, A sthma Daily and as needed for shortness of breath for 90 day(s) Sep, Active LORazepam 1 MG 1 tablet Orally daily as nee ded 1 hour prior to air travel for 6 days Active Vitamin D 1000 UNIT 1 tablet with meal Orally Once a day Active Azelastine HCl 0.1 % 2 sprays in each nostril Nasally Once a day for 90 day(s) Active Lisinopril 20MG 1 tablet Orally Once a day for 90 Active Bepreve 1.5 % 1 drop into affected eye per Dr Harden Ophthalmic Twice a day as needed for 30 Days Active Loratadine 10 MG 1 tablet Orally Once a day for 30 day(s) prn Active Replens OTC as directed Vaginal as directed as needed Apr, Active buPROPion HCl ER (XL) 150 MG 1 tablet in the morning O rally Once a day for 90 day(s) Apr, Active Ipratropium-Albuterol 0.5-2.5 (3) MG/3ML 3 ml Inhalation Four times a day Active Physical Therapy evaluate and treat as directed 1-3X/week DX: R4 2 for 30 days Oct, Not-Taking Lansoprazole 30 MG TAKE 1 CAPSULE DAILY [...] Treatment Notes Treatm ent Clinical Notes Jun, Mixed hyperlipidemia (ICD-10 - E78.2) Jun, Essential hypertension (ICD-10 - I10) Jun, Gastroesophageal reflux dise ase without esophagitis (ICD-10 - K21.9) PLAN OF TREATMENT Medication Medication Name Sig [...] Orally Once a day for 90 days Lansoprazole 30 MG TAKE 1 CAPSULE DAILY for 90 Loratadine 10 MG 1 tablet Orally Once a day for 30 day(s) Rosuvastatin Calcium 20 MG 1 tablet Orally Once a day for 90 day s Ventolin HFA 108 (90 Base) MCG/ACT 2 puffs as needed I nhalation every 4 hrs for 90 day(s) Insurance Providers Payer Name Payer Address Payer Phone Insured Name Patient Relati onship to Insured Coverage Start Date Coverage End Date BCBS OF [facility] [phone] [facility] [id number] ART[place] RUIZ self
--- OUTSIDE RECORDS SUMMARY | 2021-08-27 16:59 | CCD | Continuity of Care Document ---
Author Nicole Carrero N.P. Organization Unknown Address [address] [place] [address] Phone [phone] Care Team Providers Care Indirect Sales Representative Name Role Phone Shyanne Peguero AUTM [phone] AUTM Unavailable Problems Description No Active Problems [...] lb BMI (Body Mass Index) 30.5 kg/m2 [place] Body Weight 115 lb Weight 78.019 kg BSA (Body Surface Area) 1.81 m2 11/27/2020 9:11am BP Systolic 118 mmHg BP Diastolic 78 mmHg Heart Rate 80 /min O2 % BldC Oximetry 98 % Room Air Height 63 inches 5'3" Weight 179.00 lb BMI (Body Mass Index) 31.7 kg/m2 [place] Body Weight 115 lb Weight 81.194 kg [...] L Fev6-%Pred-Pre 98 L Fev6-LLN 2.41 L Ndv4gya-Kczt 78 % Bex4huv-Fue 76 % Pgr4zps-%Pred-Pre 97 % Nzz6tmq-IBE 68 % Src0awx-Mhea 96 % Gau7rdi-Vmv 99 % Fqh1pry-%Pred-Pre 103 % FEFMax-Pred 6.14 L/E/sec FEFMax-Pre 6.96 L/E/sec FEFMax-%Pred-Pre 113 L/E/sec FEFMax-LLN 4.48 L/E/sec Bnx7076-Bmib 2.29 L/E/sec Lcj1339-Grb 1.85 L/E/sec Nzq8153-%Pred-Pre 80 L/E/sec Ima7531-OZE 1.09 L/E/sec ExpTime-Pre 7.08 sec Mmv0klt6-Zrrs 81 % Jkr6fdf2-Xmj 77 % Nlt9plv3-%Pred-Pre 94 % Vgy6ruv0-FRB 72 % Procedures Description No Information Available [...]
--- OUTSIDE RECORDS SUMMARY | 2021-08-27 16:59 | CCD | Continuity of Care Document ---
Author Nicole Carrero N.P. Organization Unknown Address [address] [place] [address] Phone [phone] Care Team Providers Care Metal Dealer Name Role Phone Shyanne Peguero AUTM [phone] AUTM Unavailable Problems Description No Active Problems [...] lb BMI (Body Mass Index) 30.5 kg/m2 [place] Body Weight 115 lb Weight 78.019 kg BSA (Body Surface Area) 1.81 m2 11/27/2020 9:11am BP Systolic 118 mmHg BP Diastolic 78 mmHg Heart Rate 80 /min O2 % BldC Oximetry 98 % Room Air Height 63 inches 5'3" Weight 179.00 lb BMI (Body Mass Index) 31.7 kg/m2 [place] Body Weight 115 lb Weight 81.194 kg [...] L Fev6-%Pred-Pre 98 L Fev6-LLN 2.41 L Ath4eyc-Ouxl 78 % Kat6nrx-Wfu 76 % Shs8peh-%Pred-Pre 97 % Sct5pvo-VTA 68 % Xcu9azi-Djtq 96 % Cbf5ooa-Lmx 99 % Yuq9rth-%Pred-Pre 103 % FEFMax-Pred 6.14 L/E/sec FEFMax-Pre 6.96 L/E/sec FEFMax-%Pred-Pre 113 L/E/sec FEFMax-LLN 4.48 L/E/sec Bcq4365-Ymle 2.29 L/E/sec Ycc7603-Fwq 1.85 L/E/sec Wgm3149-%Pred-Pre 80 L/E/sec Oth5617-MUL 1.09 L/E/sec ExpTime-Pre 7.08 sec Wey2okp4-Iefr 81 % Lsf4uhe2-Soe 77 % Kme6apm3-%Pred-Pre 94 % Xtd9zwi0-PNB 72 % Procedures Date Code Description Status 06/30/2021 79947 Office/Outpatient Established Lo w MDM 20-29 Min Completed 06/30/2021 39502 Spirometry Completed Medical Devices Description No Information Available Encounters Type Date Location Provider Dx Diagnosis Office Visit 06/30/2021 4:30p [facility] Ellis Lafleur, N.P. J45.40 Moderate persistent asthma, uncomplicate d Assessments Date Code Description Provider 06/30/2021 J45.40 Moderate persistent asthma, unco mplicated Yvonne Lafleur, N.P. Plan of Treatment 06/30/2021 - Yvonne Lafleur, N.P.* J45.40 Moderate persistent asthma, uncomplicated * * New Labs:* FVL/[place], Ordered: 06/30/21 * Follow up:* 1. Follow up in 6 months time with fvl/spirometry. Functional Status Functional Condition Comment Date Status Independent with all ADL's Activ e Mental Status Mental Condition Comment Date Status Cognitive ability not impaired A ctive Referrals Description No Information Available
--- OUTSIDE RECORDS SUMMARY | 2021-08-27 16:59 | CCD | Continuity of Care Document ---
Author Nicole Carrero N.P. Organization Unknown Address [address] [place] [address] Phone [phone] Care Team Providers Care Insurance Policy Clerk Name Role Phone Shyanne Peguero AUTM [phone] AUTM Unavailable Problems Description No Active Problems [...] lb BMI (Body Mass Index) 30.5 kg/m2 [place] Body Weight 115 lb Weight 78.019 kg BSA (Body Surface Area) 1.81 m2 11/27/2020 9:11am BP Systolic 118 mmHg BP Diastolic 78 mmHg Heart Rate 80 /min O2 % BldC Oximetry 98 % Room Air Height 63 inches 5'3" Weight 179.00 lb BMI (Body Mass Index) 31.7 kg/m2 [place] Body Weight 115 lb Weight 81.194 kg [...] L Fev6-%Pred-Pre 98 L Fev6-LLN 2.41 L Umv7anz-Skrj 78 % Gmo4bbe-Hiq 76 % Mfv6vna-%Pred-Pre 97 % Mhh3oxl-PYO 68 % Kiq7bql-Duuk 96 % Fvt3hva-Kvp 99 % Smz6xyc-%Pred-Pre 103 % FEFMax-Pred 6.14 L/E/sec FEFMax-Pre 6.96 L/E/sec FEFMax-%Pred-Pre 113 L/E/sec FEFMax-LLN 4.48 L/E/sec Wia2371-Vnbw 2.29 L/E/sec Zmb6188-Jwc 1.85 L/E/sec Chn1686-%Pred-Pre 80 L/E/sec Xdg8409-NPD 1.09 L/E/sec ExpTime-Pre 7.08 sec Vzu2dnq8-Mpck 81 % Noa4tdi6-Swj 77 % Cru2bfv8-%Pred-Pre 94 % Rie1jiu7-SGN 72 % Procedures Description No Information Available [...]
--- OUTSIDE RECORDS SUMMARY | 2021-08-27 16:59 | CCD | Continuity of Care Document ---
Author Nicole Carrero N.P. Organization Unknown Address [address] [place] [address] Phone [phone] Care Team Providers Care X Ray Inspector Name Role Phone Shyanne Peguero AUTM [phone] AUTM Unavailable Problems Description No Active Problems [...] lb BMI (Body Mass Index) 30.5 kg/m2 [place] Body Weight 115 lb Weight 78.019 kg BSA (Body Surface Area) 1.81 m2 11/27/2020 9:11am BP Systolic 118 mmHg BP Diastolic 78 mmHg Heart Rate 80 /min O2 % BldC Oximetry 98 % Room Air Height 63 inches 5'3" Weight 179.00 lb BMI (Body Mass Index) 31.7 kg/m2 [place] Body Weight 115 lb Weight 81.194 kg [...] L Fev6-%Pred-Pre 98 L Fev6-LLN 2.41 L Yxw9jnr-Xfrk 78 % Xlf5egu-Cow 76 % Kuf1cla-%Pred-Pre 97 % Ygl4azv-ZKH 68 % Tfs9vww-Hzfv 96 % Rvb8htu-Dqw 99 % Jhw8gob-%Pred-Pre 103 % FEFMax-Pred 6.14 L/E/sec FEFMax-Pre 6.96 L/E/sec FEFMax-%Pred-Pre 113 L/E/sec FEFMax-LLN 4.48 L/E/sec Kau3471-Csrf 2.29 L/E/sec Yyk1655-Izp 1.85 L/E/sec Unl8623-%Pred-Pre 80 L/E/sec Dch4263-RVS 1.09 L/E/sec ExpTime-Pre 7.08 sec Imt5luf2-Xwmq 81 % Guc0wqc8-Ype 77 % Kew7oze0-%Pred-Pre 94 % Fsd9ghz7-BAR 72 % Procedures Description No Information Available [...]
--- OUTSIDE RECORDS SUMMARY | 2021-08-27 16:59 | CCD ---
Author Author [facility] Organization [facility] Address Unknown Phone Unavailable Care Team Providers Care Shelving Supervisor Name Role Phone Trini Membreno Unavailable PROBLEMS Type Condition ICD9-CM Code AXP38-HA Code Onset Dates Condition S tatus W/U Status Risk SNOMED Code Notes Problem Allergic rhinitis J30.9 Active confirmed 61 009794 Problem Mixed hyperlipidemia E78.2 Active confirmed 155482652 Problem Unspecified asthma with (acute) exacerbation J45.9 01 Active confirmed 809686267 Problem Vitamin D deficiency E55.9 Active confirmed 09641425 Problem Moderate persistent asthma without complication J4 5.40 Active confirmed 355372263 Problem Intermittent asthma, uncomplicated J45.20 Activ e confirmed 990399213 Problem Obesity (BMI 30-39.9) E66.9 Active confirmed 164302486 Problem Symptomatic menopausal or female climacteric states N95.1 Active confirmed 62309378 Problem Asthma exacerbation J45.901 Active confirmed 066013760 Problem Acquired absence of both cervix and uterus Z90.710 Active confirmed 895506671 Problem Anxiety F41.9 Active confirmed 40634177 Problem Single current episode of ma tomi depressive disorder, unspecified depression episode severity F32.9 Active confirmed 26 3724498 Problem Generalized anxiety disorder F41.1 Active confirme d 30128265 Problem Major depressive disorder, recurrent, moderate F33 .1 Active confirmed 359884319 Problem Vertigo R42 Active confirmed 284185465 Problem Gastroesophageal reflux disease without esophagitis K21.9 Active confirmed 558052914 Problem Environmental allergies Z91.09 Active confirmed 178179718 Problem Other depression F32.89 Active confirmed 354 92024 Problem Essential hypertension I10 Active confirmed 29186749 Problem Mild intermittent asthma with acute exacerbation J 45.21 Active confirmed 197852473 Problem Adjustment disorder with mixed anxiety and depressed mood F43.23 Active confirmed 28652946 Problem Major depressive disorder, single episode, moderate F32.1 Active confirmed 17215580 Problem Exacerbation of asthma, unsp ecified asthma severity, unspecified whether persistent J45.901 Active confirmed 568260150 Problem Left bundle branch block I44.7 Active confirmed 60355744 ALLERGIES Allergen (clinical drug ingredient) Drug/Non Drug Allergy do cumented on EMR Reaction Allergy Type Onset Date Status pravastatin Pravastatin Sodium([facility] Code:[address]-65) short ness of breath Drug Allergy Active sulfamethoxazole / trimethoprim Bactrim(ND Code:[address]-85) hives Drug Allergy Active atorvastatin Atorvastatin Calcium(ND Code:[address]-65) ella rtness of breath Drug Allergy Active ENCOUNTERS from 1960 to 2021-07-09 Encounter Location Date Provider Diagnosis [place] [id number] [facility] [phone] [place] [address] Jun, Trini Membreno Anxiety F41.9 IMMUNIZATIONS Vaccine Route Administration Date Status COVID-19 [...] Language: Question Answer Notes Languages spoken: Ukrainian Judaism: Question Answer Notes Judaism 21 Hinduism Sexual Hx: Question Answer Notes Had sex [...] Treatment Notes Treatm ent Clinical Notes Jun, Anxiety (ICD-10 - F41.9) PLAN OF TREATMENT Medication Medication Name Sig [...] 90 Next Appt Details Provider Name:Ashley Cochran, 11-26 01:00:00 PM, [address] [facility], , [place], [address], Insurance Providers Payer Name Payer Address Payer Phone Insured Name Patient Relati onship to Insured Coverage Start Date Coverage End Date BCBS OF [facility] [id number] [facility] [id number] [place]UIZ self
[2021-08-27 17:21] VITALS: BP 121/64
== END 2021-08-27 17:22 | disposition home or self-care (01) ==
LOC: EDBD 14:22 → M ED 14:22
DX: S33.5XXA Sprain of ligaments of lumbar spine, initial encounter (principal); V49.40XA Driver injured in collision with unspecified motor vehicles in traffic accident, initial encounter; Y92.9 Unspecified place or not applicable; Y93.9 Activity, unspecified; Y99.9 Unspecified external cause status; Z88.2 Allergy status to sulfonamides

== ENCOUNTER → 2021-09-10 | Outpatient (CLI) | payer OTHER, BC ==
[~2021-09-10] MED LIST changes: +BUPR-365 PO; +CIPR250T3 PO; +METH-1164 PO; +METR-265 PO; +NAPR-837 PO; +PANT40TA29 PO; +PROB250C PO; +SUCR1TA PO; +VITA500030 PO
== END ==
LOC: M PLAIMG 09:41
PROVIDERS: ATTEND Physician Assistant Medical
DX: S06.0X0D Concussion without loss of consciousness, subsequent encounter (principal); V89.2XXD Person injured in unspecified motor-vehicle accident, traffic, subsequent encounter; Y92.9 Unspecified place or not applicable; Y93.9 Activity, unspecified; Y99.9 Unspecified external cause status; K86.9 Disease of pancreas, unspecified; K63.9 Disease of intestine, unspecified

== ENCOUNTER → 2021-09-10 | Outpatient (CLI) | payer OTHER ==
[2021-09-10 11:17] LABS: BASO % 0.4 % (0.0-1.0); EOS # 0.3 10^3/uL (0.0-0.5); EOS % 2.5 % (0.0-3.0); HEMATOCRIT 40.1 % (36.0-47.0); HEMOGLOBIN 13.1 g/dl (12.0-15.5); LYMPH % 18.1 % (24.0-44.0); MEAN CORPUSCULAR HEMOGLOBIN 27.3 pg (27.0-33.0); MEAN CORPUSCULAR HGB CONC 32.7 g/dl (32.0-36.5); MEAN CORPUSCULAR VOLUME 83.5 fl (80.0-96.0); MONO # 1.1 10^3/uL (0.0-0.8); MONO % 9.8 % (2.0-8.0); NEUTROPHILS # 7.7 10^3/uL (1.5-8.5); NEUTROPHILS % 68.8 % (36.0-66.0); PLATELET COUNT, AUTOMATED 233 10^3/uL (150-450); WHITE BLOOD COUNT 11.2 10^3/uL (4.0-10.0)
[2021-09-10 11:40] LABS: ALBUMIN 4.2 GM/DL (3.2-5.2); BILIRUBIN,TOTAL 0.8 MG/DL (0.2-1.0); CALCIUM LEVEL 9.9 MG/DL (8.8-10.2); CREATININE FOR GFR 1.09 MG/DL (0.55-1.30); GLOMERULAR FILTRATION RATE 54.5 (>45); POTASSIUM SERUM 3.8 MEQ/L (3.5-5.1); TOTAL PROTEIN 7.3 GM/DL (6.4-8.2)
== END ==
LOC: M PLALAB 09:46
PROVIDERS: ATTEND Physician Assistant Medical
DX: S06.0X0D Concussion without loss of consciousness, subsequent encounter (principal); V89.2XXD Person injured in unspecified motor-vehicle accident, traffic, subsequent encounter; Y92.410 Unspecified street and highway as the place of occurrence of the external cause; Y99.9 Unspecified external cause status; Y93.9 Activity, unspecified

== ENCOUNTER 2021-09-11 06:50 | Observation (INO) | payer BC, OTHER ==
[~2021-09-11] VITALS: Ht 160 cm; Wt 76.9 kg
[~2021-09-11 06:50] MED LIST changes: -BUPR-365 PO; -CIPR250T3 PO; -METR-265 PO; -PANT40TA29 PO; -PROB250C PO; -SUCR1TA PO; -VITA500030 PO
[2021-09-11] MEDS ORDERED: ONDANSETRON 4MG/2ML VIAL IV ONE (08:10)
[2021-09-11] MEDS ORDERED: MORPHINE 4 MG/ML 1ML VIAL/SYRINGE (J2270) IV ONE (08:10)
[2021-09-11] MEDS ORDERED: NS 1,000 ML IV ONE (08:10)
[2021-09-11 08:28] LABS: BASO % 0.2 % (0.0-1.0); EOS # 0.2 10^3/uL (0.0-0.5); EOS % 1.8 % (0.0-3.0); HEMOGLOBIN 12.8 g/dl (12.0-15.5); LYMPH # 1.4 10^3/uL (1.5-5.0); LYMPH % 11.1 % (24.0-44.0); MEAN CORPUSCULAR HEMOGLOBIN 27.3 pg (27.0-33.0); MEAN CORPUSCULAR HGB CONC 32.8 g/dl (32.0-36.5); MEAN CORPUSCULAR VOLUME 83.2 fl (80.0-96.0); MONO # 1.1 10^3/uL (0.0-0.8); MONO % 8.5 % (2.0-8.0); NEUTROPHILS # 10.2 10^3/uL (1.5-8.5); NEUTROPHILS % 78.1 % (36.0-66.0); PLATELET COUNT, AUTOMATED 239 10^3/uL (150-450); RED BLOOD COUNT 4.69 10^6/uL (4.00-5.40)
[2021-09-11 09:06] LABS: APPEARANCE, URINE HAZY (CLEAR); BACTERIA, URINE AUTO NEGATIVE (NEGATIVE); BILIRUBIN, URINE AUTO NEGATIVE (NEGATIVE); BLOOD, URINE BLOOD NEGATIVE (NEGATIVE); COLOR, URINE AMBER (YELLOW); GLUCOSE, URINE (UA) AUTO NEGATIVE (NEGATIVE); GRANULAR CAST, URINE AUTO 1 /LPF; KETONE, URINE AUTO 2+ mg/dL (NEGATIVE); LEUKOCYTE ESTERASE, URINE AUTO 1+ (NEGATIVE); MUCUS, URINE SMALL (NEGATIVE); NITRITE, URINE AUTO NEGATIVE (NEGATIVE); PROTEIN, URINE AUTO 1+ mg/dL (NEGATIVE); RBC, URINE AUTO 1 /HPF (0-3); SPECIFIC GRAVITY URINE AUTO 1.025 (1.002-1.035); SQUAMOUS EPITHELIAL CELL UR AU 2 /HPF (0-6); UROBILINOGEN, URINE AUTO 0.2 mg/dL (0.0-2.0); WBC, URINE AUTO 6 /HPF (0-3)
[2021-09-11 09:21] LABS: BILIRUBIN,DIRECT 0.2 MG/DL (0.0-0.2); BILIRUBIN,TOTAL 0.8 MG/DL (0.2-1.0); CALCIUM LEVEL 9.5 MG/DL (8.8-10.2); CREATININE FOR GFR 1.01 MG/DL (0.55-1.30); GLOMERULAR FILTRATION RATE 59.5 (>45); POTASSIUM SERUM 4.5 MEQ/L (3.5-5.1)
[2021-09-11 09:22] LABS: ALBUMIN 3.7 GM/DL (3.2-5.2); TOTAL PROTEIN 7.6 GM/DL (6.4-8.2)
[2021-09-11] MEDS ORDERED: CIPROFLOXACIN 400 MG in IV 1 EA IV ONE (09:35)
[2021-09-11] MEDS ORDERED: ISOVUE-370 76% 100ML VIAL As Ordered ONE (09:50)
[2021-09-11] MEDS ORDERED: metroNIDAZOLE 500 MG in IV 1 EA IV ONE (11:40)
[2021-09-11] MEDS ORDERED: ACETAMINOPHEN TAB 650MG DOSE (2X325MG) PO PRN (11:45)
[2021-09-11] MEDS ORDERED: MORPHINE 2 MG/ML 1ML VIAL (J2270) IV PRN ×2 (11:45→12:35)
[2021-09-11] MEDS ORDERED: BUPR-365 PO (12:20)
[2021-09-11] MEDS ORDERED: VITA500030 PO (12:39)
[2021-09-11] MEDS ORDERED: HOME MED LIST COMPLETE! XX SCH (12:40)
[2021-09-11 12:55] LABS: INR 1.12; PROTHROMBIN TIME 14.8 SECONDS (12.7-14.5)
[2021-09-11 12:56] LABS: PARTIAL THROMBOPLASTIN TIME 41.9 SECONDS (25.9-37.0)
[2021-09-11] MEDS: NS 1,000 ML IV SCH (13:53)
[2021-09-11] MEDS: ONDANSETRON 4MG/2ML VIAL IV SCH ×2 (13:54→20:22)
[2021-09-11] MEDS: ENOXAPARIN 40MG/0.4ML SYRINGE (J1650 PER 10MG) SC SCH (13:54)
[2021-09-11 14:20] VITALS: BP 143/79
[2021-09-11] MEDS ORDERED: MORPHINE 4 MG/ML 1ML VIAL/SYRINGE (J2270) IV PRN (14:55)
[2021-09-11] MEDS ORDERED: IPRATROPIUM 0.5MG/ALBUTEROL 2.5MG INH SOL UD 3ML (DUONEB) NEB PRN (15:00)
[2021-09-11] MEDS ORDERED: ALBUTEROL 90 MCG/ACT 8GM HFA INHALER INH PRN (15:00)
[2021-09-11] MEDS ORDERED: AZELASTINE 137MCG NASAL SPY 30 ML (ASTELIN) PRN (15:00)
[2021-09-11] MEDS: buPROPion **XL** TABLET 150MG (WELLBUTRIN XL) PO SCH (17:00)
[2021-09-11] MEDS: SUCRALFATE 1 GM TAB PO SCH ×2 (17:04→21:59)
[2021-09-11] MEDS: ROSUVASTATIN 10 MG TAB (CRESTOR) PO SCH (17:04)
[2021-09-11] MEDS: CHLORTHALIDONE 12.5MG PER 1/2 TABLET PO SCH (17:04)
[2021-09-11] MEDS: ADVAIR HFA 115/21MCG INHALER INH SCH (18:16)
[2021-09-11] MEDS: MORPHINE 2 MG/ML 1ML VIAL (J2270) IV PRN (18:25)
[2021-09-11] MEDS: metroNIDAZOLE 500 MG in IV 1 EA IV SCH (20:22)
[2021-09-11] MEDS: PANTOPRAZOLE 40MG TAB (PROTONIX) PO SCH (20:22)
[2021-09-11] MEDS: CIPROFLOXACIN 400 MG in IV 1 EA IV SCH (21:58)
[2021-09-11 22:00] VITALS: BP 138/70
[2021-09-12] MEDS: ONDANSETRON 4MG/2ML VIAL IV SCH ×3 (02:46→13:21)
[2021-09-12] MEDS: NS 1,000 ML IV SCH ×2 (02:46→08:20)
[2021-09-12] MEDS: MORPHINE 2 MG/ML 1ML VIAL (J2270) IV PRN (02:49)
[2021-09-12] MEDS: metroNIDAZOLE 500 MG in IV 1 EA IV SCH ×2 (04:17→12:13)
[2021-09-12 06:00] VITALS: BP 126/72
[2021-09-12 06:30] LABS: HEMOGLOBIN 10.9 g/dl (12.0-15.5); MEAN CORPUSCULAR HEMOGLOBIN 27.4 pg (27.0-33.0); MEAN CORPUSCULAR HGB CONC 32.1 g/dl (32.0-36.5); MEAN CORPUSCULAR VOLUME 85.4 fl (80.0-96.0); PLATELET COUNT, AUTOMATED 211 10^3/uL (150-450); RED BLOOD COUNT 3.98 10^6/uL (4.00-5.40); WHITE BLOOD COUNT 7.1 10^3/uL (4.0-10.0)
[2021-09-12 06:43] LABS: ALBUMIN 3.1 GM/DL (3.2-5.2); ALT/SGPT 22 U/L (12-78); BILIRUBIN,TOTAL 0.5 MG/DL (0.2-1.0); BLOOD UREA NITROGEN 12 MG/DL (7-18); CALCIUM LEVEL 8.6 MG/DL (8.8-10.2); CARBON DIOXIDE LEVEL 27 MEQ/L (21-32); CHLORIDE LEVEL 104 MEQ/L (98-107); CREATININE FOR GFR 0.96 MG/DL (0.55-1.30); GLOMERULAR FILTRATION RATE > 60.0 (>45); GLUCOSE, FASTING 103 MG/DL (70-100); POTASSIUM SERUM 3.8 MEQ/L (3.5-5.1); SODIUM LEVEL 140 MEQ/L (136-145); TOTAL PROTEIN 7.1 GM/DL (6.4-8.2)
[2021-09-12] MEDS: ADVAIR HFA 115/21MCG INHALER INH SCH (06:56)
[2021-09-12] MEDS: SUCRALFATE 1 GM TAB PO SCH ×2 (08:15→12:12)
[2021-09-12] MEDS: ROSUVASTATIN 10 MG TAB (CRESTOR) PO SCH (08:15)
[2021-09-12] MEDS: CHLORTHALIDONE 12.5MG PER 1/2 TABLET PO SCH (08:15)
[2021-09-12 08:16] VITALS: BP 128/72
[2021-09-12] MEDS: PANTOPRAZOLE 40MG TAB (PROTONIX) PO SCH (08:16)
[2021-09-12] MEDS: buPROPion **XL** TABLET 150MG (WELLBUTRIN XL) PO SCH (08:16)
[2021-09-12] MEDS: CIPROFLOXACIN 400 MG in IV 1 EA IV SCH (08:17)
[2021-09-12] MEDS: ENOXAPARIN 40MG/0.4ML SYRINGE (J1650 PER 10MG) SC SCH (08:17)
[2021-09-12] MEDS ORDERED: CIPR250T3 PO (12:49)
[2021-09-12] MEDS ORDERED: PANT40TA29 PO (12:49)
[2021-09-12] MEDS ORDERED: SUCR1TA PO (12:49)
[2021-09-12] MEDS ORDERED: PROB250C PO (12:49)
[2021-09-12] MEDS ORDERED: METR-265 PO (12:49)
[2021-09-13] MEDS ORDERED: FLUBLOK(EGG FREE)(QUAD)INFLUENZA VACC 0.5ML SYRINGE 18YRS & OLDER IM ONE (09:00)
== END 2021-09-12 14:21 | disposition home or self-care (01) ==
LOC: M ED 06:50 → M ED INP 11:45 → M MSPAV 14:30
PROVIDERS: ADMIT Internal Medicine; ATTEND Internal Medicine
DX: K57.92 Diverticulitis of intestine, part unspecified, without perforation or abscess without bleeding (principal); R10.13 Epigastric pain; M54.59 Other low back pain; R51.9 Headache, unspecified; I10 Essential (primary) hypertension; E78.5 Hyperlipidemia, unspecified; F41.9 Anxiety disorder, unspecified; F32.9 Major depressive disorder, single episode, unspecified; Z79.899 Other long term (current) drug therapy; Z88.2 Allergy status to sulfonamides
CPT/HCPCS: 36415; 72131; 74177; 80048; 80053; 80076; 81001; 82150; 83690; 85025; 85027; 85610; 85730; 94640; 96365; 96366; 96367; 96372; 96375; 96376; 97161; 97530; 99284; J0744; J1650; J2270; J2405; Q9967; U0002

== ENCOUNTER → 2021-11-24 | Outpatient (CLI) | payer BC ==
[~2021-11-24] MED LIST changes: +BUPR-365 PO; +CIPR250T3 PO; +METR-265 PO; +PANT40TA29 PO; +PROB250C PO; +SUCR1TA PO; +VITA500030 PO
[2021-11-24 17:12] LABS: CREATININE, URINE 39.8 MG/DL; MALB URINE SIEMENS < 5.0 MG/L; MAU/CREAT RATIO 12.5 MCG/MG (0.0-30.0)
[2021-11-24 17:15] LABS: BLOOD UREA NITROGEN 16 MG/DL (7-18); CALCIUM LEVEL 9.8 MG/DL (8.8-10.2); CARBON DIOXIDE LEVEL 32 MEQ/L (21-32); CHLORIDE LEVEL 101 MEQ/L (98-107); GLOMERULAR FILTRATION RATE > 60.0 (>45); GLUCOSE, FASTING 92 MG/DL (70-100); POTASSIUM SERUM 4.2 MEQ/L (3.5-5.1); SODIUM LEVEL 138 MEQ/L (136-145)
== END ==
LOC: M PLALAB 10:59
PROVIDERS: ATTEND Nurse Practitioner Family
DX: I10 Essential (primary) hypertension (principal)

== ENCOUNTER 2022-05-31 20:41 | Emergency (ER) | payer OTHER, SELFPAY ==
[~2022-05-31] VITALS: Ht 160 cm; Wt 77.3 kg
[2022-05-31 21:26] LABS: BASO % 0.4 % (0.0-1.0); EOS % 0.5 % (0.0-3.0); HEMATOCRIT 39.3 % (36.0-47.0); HEMOGLOBIN 12.9 g/dl (12.0-15.5); LYMPH # 1.5 10^3/uL (1.5-5.0); LYMPH % 17.4 % (24.0-44.0); MEAN CORPUSCULAR HEMOGLOBIN 27.9 pg (27.0-33.0); MEAN CORPUSCULAR HGB CONC 32.8 g/dl (32.0-36.5); MEAN CORPUSCULAR VOLUME 85.1 fl (80.0-96.0); MONO # 0.5 10^3/uL (0.0-0.8); MONO % 5.6 % (2.0-8.0); NEUTROPHILS # 6.4 10^3/uL (1.5-8.5); NEUTROPHILS % 75.6 % (36.0-66.0); PLATELET COUNT, AUTOMATED 220 10^3/uL (150-450); RED BLOOD COUNT 4.62 10^6/uL (4.00-5.40); WHITE BLOOD COUNT 8.5 10^3/uL (4.0-10.0)
[2022-05-31 21:37] LABS: INR 0.89; PROTHROMBIN TIME 12.5 SECONDS (12.7-14.5)
[2022-05-31 22:02] LABS: CK-MB VALUE MASS 2.1 NG/ML (<3.6); MB/CK RELATIVE INDEX 1.65 (< OR =4)
[2022-05-31 22:04] LABS: ALT/SGPT 29 U/L (12-78); AMYLASE 24 U/L (25-115); BILIRUBIN,DIRECT 0.1 MG/DL (0.0-0.2); BILIRUBIN,TOTAL 0.4 MG/DL (0.2-1.0); BLOOD UREA NITROGEN 15 MG/DL (7-18); CALCIUM LEVEL 9.4 MG/DL (8.8-10.2); CARBON DIOXIDE LEVEL 27 MEQ/L (21-32); CHLORIDE LEVEL 105 MEQ/L (98-107); CREATININE FOR GFR 0.95 MG/DL (0.55-1.30); GLOMERULAR FILTRATION RATE > 60.0 (>45); GLUCOSE, FASTING 137 MG/DL (70-100); LIPASE 57 U/L (73-393); POTASSIUM SERUM 3.5 MEQ/L (3.5-5.1); SODIUM LEVEL 139 MEQ/L (136-145); TOTAL PROTEIN 7.4 GM/DL (6.4-8.2)
[2022-06-01 00:43] VITALS: BP 165/82
== END 2022-06-01 03:08 | disposition left against medical advice (07) ==
LOC: M ED 20:41
DX: Z53.21 Procedure and treatment not carried out due to patient leaving prior to being seen by health care provider (principal)

== ENCOUNTER → 2022-10-10 | Outpatient (CLI) | payer OTHER | LOC: M WHC 15:03 | PROVIDERS: ATTEND Nurse Practitioner Family | DX: Z12.31 Encounter for screening mammogram for malignant neoplasm of breast (principal) ==

== ENCOUNTER → 2022-11-25 | Outpatient (CLI) | payer OTHER ==
[~2022-11-25] MED LIST changes: +MONT-5 PO; -SING10TA32 PO
[2022-11-25 14:31] LABS: BASO % 0.7 % (0.0-1.0); EOS # 0.1 10^3/uL (0.0-0.5); EOS % 2.3 % (0.0-3.0); HEMATOCRIT 40.4 % (36.0-47.0); HEMOGLOBIN 12.7 g/dl (12.0-15.5); LYMPH # 1.8 10^3/uL (1.5-5.0); LYMPH % 32.6 % (24.0-44.0); MEAN CORPUSCULAR HEMOGLOBIN 27.4 pg (27.0-33.0); MEAN CORPUSCULAR HGB CONC 31.4 g/dl (32.0-36.5); MEAN CORPUSCULAR VOLUME 87.3 fl (80.0-96.0); MONO # 0.5 10^3/uL (0.0-0.8); MONO % 9.2 % (2.0-8.0); NEUTROPHILS % 54.7 % (36.0-66.0); PLATELET COUNT, AUTOMATED 271 10^3/uL (150-450); RED BLOOD COUNT 4.63 10^6/uL (4.00-5.40); WHITE BLOOD COUNT 5.6 10^3/uL (4.0-10.0)
[2022-11-25 14:57] LABS: ALBUMIN 3.8 G/DL (3.2-5.2); ALKALINE PHOSPHATASE 139 U/L (46-116); ALT/SGPT 84 U/L (7.0-40); AST/SGOT 44 U/L (<34); BILIRUBIN,TOTAL 0.5 MG/DL (0.3-1.2); BLOOD UREA NITROGEN 12 MG/DL (9-23); CARBON DIOXIDE LEVEL 35 MMOL/L (20-31); CHLORIDE LEVEL 102 MMOL/L (98-107); CHOLESTEROL LEVEL 268 MG/DL (<200); CHOLESTEROL RISK RATIO 4.67 (<5); CREATININE FOR GFR 0.81 MG/DL (0.55-1.30); GLOMERULAR FILTRATION RATE > 60.0 (>45); GLUCOSE, FASTING 96 MG/DL (74-106); HDL CHOLESTEROL 57.3 MG/DL (>40); LDL CHOLESTEROL 168.3 MG/DL (<100); NON-HDL-C 211 MG/DL; POTASSIUM SERUM 3.8 MMOL/L (3.5-5.1); SODIUM LEVEL 143 MMOL/L (136-145); TOTAL PROTEIN 6.9 G/DL (5.7-8.2); TRIGLYCERIDES LEVEL 212 MG/DL (<150)
[2022-11-25 15:01] LABS: THYROID STIMULATING HORMONE 2.344 uIU/ML (0.55-4.78); TOTAL 25(OH) VITAMIN D 54.2 NG/ML (20.0-100.0)
[2022-11-25 16:03] LABS: HEMOGLOBIN A1c 5.6 % (4.0-6.0)
[2022-11-28 10:15] LABS: HEPATITIS B SURFACE ANTIBODY NEGATIVE (POSITIVE)
[2022-11-28 10:28] LABS: HEPATITIS B SURFACE ANTIGEN NEGATIVE (NEGATIVE)
[2022-11-28 10:48] LABS: HEPATITIS C VIRUS ABY INDEX < 0.0 INDEX (<0.8)
[2022-11-30 00:08] LABS: ANA (HEP2) Negative (.); ANTI-MITOCHONDRIAL ANTIBODY <20.0 Units (0.0-20.0); HEPATITIS A IgG TOTAL Negative (Negative)
== END ==
LOC: M PLALAB 11:26
PROVIDERS: ATTEND Physician Assistant Medical
DX: E55.9 Vitamin D deficiency, unspecified (principal); I10 Essential (primary) hypertension; J45.901 Unspecified asthma with (acute) exacerbation; F41.9 Anxiety disorder, unspecified; E66.9 Obesity, unspecified; Z13.220 Encounter for screening for lipoid disorders; R79.89 Other specified abnormal findings of blood chemistry

== ENCOUNTER → 2023-03-24 | Outpatient (CLI) | payer OTHER ==
[~2023-03-24] MED LIST changes: -ROSU20TA5 PO; +ROSU20TA61 PO
[2023-03-29 13:07] LABS: AFP TUMOR TOTAL 2.3 ng/mL (0.0-9.2)
== END ==
LOC: M PLALAB 09:11
PROVIDERS: ATTEND Physician Assistant Medical
DX: R79.89 Other specified abnormal findings of blood chemistry (principal)

== ENCOUNTER → 2023-05-26 | Outpatient (CLI) | payer OTHER ==
[2023-05-26 14:36] LABS: ALBUMIN 3.9 G/DL (3.2-5.2); ALKALINE PHOSPHATASE 144 U/L (46-116); ALT/SGPT 34 U/L (7.0-40); AST/SGOT 24 U/L (<34); BILIRUBIN,TOTAL 0.3 MG/DL (0.3-1.2); BLOOD UREA NITROGEN 18 MG/DL (9-23); CALCIUM LEVEL 9.5 MG/DL (8.3-10.6); CARBON DIOXIDE LEVEL 30 MMOL/L (20-31); CHLORIDE LEVEL 105 MMOL/L (98-107); CHOLESTEROL LEVEL 154 MG/DL (<200); CHOLESTEROL RISK RATIO 2.61 (<5); CREATININE FOR GFR 0.85 MG/DL (0.55-1.30); GLOMERULAR FILTRATION RATE > 60.0 (>45); GLUCOSE, FASTING 96 MG/DL (74-106); LDL CHOLESTEROL 79.6 MG/DL (<100); POTASSIUM SERUM 4.6 MMOL/L (3.5-5.1); SODIUM LEVEL 143 MMOL/L (136-145); TOTAL PROTEIN 6.8 G/DL (5.7-8.2); TRIGLYCERIDES LEVEL 77 MG/DL (<150)
[2023-05-26 15:12] LABS: INR 0.99; PROTHROMBIN TIME 12.8 SECONDS (12.5-14.5)
[2023-05-26 15:13] LABS: PARTIAL THROMBOPLASTIN TIME 31.3 SECONDS (24.8-34.2)
== END ==
LOC: M PLALAB 09:49
PROVIDERS: ATTEND Physician Assistant Medical
DX: R79.89 Other specified abnormal findings of blood chemistry (principal); Z13.220 Encounter for screening for lipoid disorders

== ENCOUNTER → 2023-12-05 | Outpatient (CLI) | payer OTHER ==
[2023-12-05 10:20] LABS: BASO % 0.4 % (0.0-1.0); EOS # 0.1 10^3/uL (0.0-0.5); EOS % 2.8 % (0.0-3.0); HEMATOCRIT 37.4 % (36.0-47.0); HEMOGLOBIN 11.8 g/dl (12.0-15.5); LYMPH # 1.4 10^3/uL (1.5-5.0); LYMPH % 28.1 % (24.0-44.0); MEAN CORPUSCULAR HEMOGLOBIN 27.1 pg (27.0-33.0); MEAN CORPUSCULAR HGB CONC 31.6 g/dl (32.0-36.5); MONO # 0.5 10^3/uL (0.0-0.8); MONO % 9.4 % (2.0-8.0); NEUTROPHILS % 59.1 % (36.0-66.0); PLATELET COUNT, AUTOMATED 211 10^3/uL (150-450); RED BLOOD COUNT 4.35 10^6/uL (4.00-5.40); WHITE BLOOD COUNT 5.1 10^3/uL (4.0-10.0)
[2023-12-05 11:04] LABS: ALBUMIN 3.7 G/DL (3.2-5.2); ALKALINE PHOSPHATASE 91 U/L (46-116); ALT/SGPT 11 U/L (7.0-40); AST/SGOT 16 U/L (<34); BILIRUBIN,TOTAL 0.4 MG/DL (0.3-1.2); BLOOD UREA NITROGEN 17 MG/DL (9-23); CALCIUM LEVEL 8.4 MG/DL (8.3-10.6); CARBON DIOXIDE LEVEL 29 MMOL/L (20-31); CHLORIDE LEVEL 105 MMOL/L (98-107); CREATININE FOR GFR 0.88 MG/DL (0.55-1.30); GLOMERULAR FILTRATION RATE > 60.0 (>45); GLUCOSE, FASTING 90 MG/DL (74-106); POTASSIUM SERUM 3.9 MMOL/L (3.5-5.1); SODIUM LEVEL 140 MMOL/L (136-145); TOTAL PROTEIN 6.3 G/DL (5.7-8.2)
[2023-12-07 11:57] LABS: IRON (FE) 51 UG/DL (50-170)
[2023-12-07 12:00] LABS: FERRITIN 57.5 NG/ML (7.3-270.7)
== END ==
LOC: M PLALAB 08:52
PROVIDERS: ATTEND Physician Assistant Medical
DX: R74.8 Abnormal levels of other serum enzymes (principal); K21.9 Gastro-esophageal reflux disease without esophagitis; J45.901 Unspecified asthma with (acute) exacerbation; I10 Essential (primary) hypertension

== ENCOUNTER → 2023-12-08 | Outpatient (REF) | payer OTHER | LOC: M SFHCPLAZ 12:18 | PROVIDERS: ATTEND Physician Assistant Medical | DX: R71.0 Precipitous drop in hematocrit (principal) ==

== ENCOUNTER → 2024-09-11 | Outpatient (CLI) | payer SELFPAY ==
[~2024-09-11] MED LIST changes: +BUPR-597 PO; -BUPR300T92 PO; -ROSU20TA61 PO; +ROSU20TA86 PO
[2024-09-11 15:04] LABS: BASO % 0.3 % (0.0-1.0); EOS # 0.1 10^3/uL (0.0-0.5); EOS % 1.2 % (0.0-3.0); HEMATOCRIT 43.2 % (36.0-47.0); LYMPH % 30.9 % (24.0-44.0); MEAN CORPUSCULAR HEMOGLOBIN 27.3 pg (27.0-33.0); MEAN CORPUSCULAR HGB CONC 32.4 g/dl (32.0-36.5); MEAN CORPUSCULAR VOLUME 84.2 fl (80.0-96.0); MONO # 0.6 10^3/uL (0.0-0.8); NEUTROPHILS # 3.7 10^3/uL (1.5-8.5); NEUTROPHILS % 58.3 % (36.0-66.0); PLATELET COUNT, AUTOMATED 245 10^3/uL (150-450); RED BLOOD COUNT 5.13 10^6/uL (4.00-5.40); WHITE BLOOD COUNT 6.4 10^3/uL (4.0-10.0)
[2024-09-11 15:12] LABS: ERYTHROCYTE SEDIMENTATION RATE 33 mm/hr (0-30)
[2024-09-11 15:33] LABS: CK-MB VALUE MASS < 1.0 NG/ML (<3.6); LIPASE 31 U/L (12-53)
[2024-09-11 15:35] LABS: C REACTIVE PROTEIN QUANTITATIV < 0.50 MG/DL (<1.0); CPK CREATINE PHOSPHOKINASE 109 U/L (34-145); MB/CK RELATIVE INDEX 0.91 (< OR =4)
== END ==
LOC: M PLALAB 12:56
PROVIDERS: ATTEND Physician Assistant Medical
DX: R07.89 Other chest pain (principal); R14.0 Abdominal distension (gaseous); R10.13 Epigastric pain

== ENCOUNTER → 2024-12-18 | Outpatient (CLI) | payer BC | LOC: M WHC 13:49 | PROVIDERS: ATTEND Physician Assistant Medical | DX: Z12.31 Encounter for screening mammogram for malignant neoplasm of breast (principal) ==